=== PATIENT | male | born 1945 | race Caucasian/White ===

== ENCOUNTER 2016-11-11 09:36 | Emergency (ER) | payer OTHER ==
[2016-11-11 09:49] VITALS: BP 163/111; PULSE 83; RESP 18; TEMP 98; O2SAT 97
--- NOTE | 2016-11-11 10:02 | EDPHY ---
H & P Time Seen by Provider: 11/11/16 09:51 HPI/ROS: CHIEF COMPLAINT: frostbite right knee HISTORY OF PRESENT ILLNESS: 71-year-old male presents with frostbite on the right knee. 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 When he stood up, the right knee felt numb. He developed erythema over this area later that day. He developed a blister yesterday. He did a Google search, which informed him to seek medical care if he developed a blister. The blister only hurts if he touches it. No pain with range of motion of his right knee. ROS: No numbness, weakness, bleeding, syncopal episode, other injury. Past Medical/Surgical History: Hernia Smoking Status: Never smoked Physical Exam: Alert and oriented, pleasant Extremities: right knee-there is a 3 cm blister just inferior to the right knee. No surrounding erythema, warmth or tenderness. Skin: intact Neuro: Motor and sensory intact Vascular: Capillary refill brisk distally. Constitutional: Initial Vital Signs Temperature (C) 36.6 C 11/11/16 09:46 Heart Rate 83 11/11/16 09:46 Respiratory Rate 18 11/11/16 09:46 Blood Pressure 163/111 H 11/11/16 09:46 O2 Sat (%) 97 11/11/16 09:46 O2 Delivery Mode Room Air Allergies/Adverse Reactions: Sulfa (Sulfonamide Antibiotics) Allergy (Verified 11/11/16 09:46) Departure - Departure Disposition: Home, Routine, Self-Care Clinical Impression: Frostbite of lower extremity Qualifiers: Encounter type: initial encounter Qualified Code(s): T33.99XA - Superficial frostbite of other sites, initial encounter Condition: Good Instructions: Frostbite (ED) Additional Instructions: Leave blister intact. Once the blister opens, clean with soap and water 2 times daily, then apply antibiotic ointment. Referrals: Jacob Cobos [Primary Care Provider] - As per Instructions
== END 2016-11-11 10:06 | disposition home or self-care (01) ==
LOC: CED 09:36
DX: T33.71XA Superficial frostbite of right knee and lower leg, initial encounter (principal); W93.2XXA Prolonged exposure in deep freeze unit or refrigerator, initial encounter

== ENCOUNTER → 2017-03-29 | Outpatient (CLI) | payer OTHER ==
[~2017-03-29] MED LIST: GADOBUTROL 10 ML VIAL IVP ONE
== END ==
LOC: FIMAGING 07:43
PROVIDERS: ATTEND Physician Assistant
DX: R51 Headache (principal)
CPT/HCPCS: 70553; A9585

== ENCOUNTER → 2017-04-29 | Outpatient (CLI) | payer OTHER | LOC: FIMAGING 16:05 | PROVIDERS: ATTEND Physician Assistant | DX: M50.321 Other cervical disc degeneration at C4-C5 level (principal); M50.322 Other cervical disc degeneration at C5-C6 level; M50.323 Other cervical disc degeneration at C6-C7 level ==

== ENCOUNTER → 2017-10-22 | Outpatient (CLI) | payer OTHER | LOC: FIMAGING 07:26 | PROVIDERS: ATTEND Registered Nurse | DX: K83.1 Obstruction of bile duct (principal); N20.0 Calculus of kidney ==

== ENCOUNTER → 2017-10-24 | Outpatient (CLI) | payer OTHER ==
[~2017-10-24] MED LIST changes: -GADOBUTROL 10 ML VIAL IVP ONE; +IOPAMIDOL (ISOVUE-300) 100 ML BTL ONE
== END ==
LOC: FIMAGING 07:45
PROVIDERS: ATTEND Registered Nurse
DX: K83.8 Other specified diseases of biliary tract (principal); E80.6 Other disorders of bilirubin metabolism; R17 Unspecified jaundice
CPT/HCPCS: 74177; Q9967

== ENCOUNTER → 2017-11-13 | Outpatient (CLI) | payer OTHER | LOC: FIMAGING 10:09 | PROVIDERS: ATTEND Surgery | DX: Z45.2 Encounter for adjustment and management of vascular access device (principal); C25.2 Malignant neoplasm of tail of pancreas ==

== ENCOUNTER → 2017-11-29 | Outpatient (CLI) | payer OTHER | LOC: FIMAGING 13:43 | DX: N50.89 Other specified disorders of the male genital organs (principal); N43.3 Hydrocele, unspecified; C25.0 Malignant neoplasm of head of pancreas; Z92.21 Personal history of antineoplastic chemotherapy ==

== ENCOUNTER 2018-01-08 | Inpatient (IN) | payer OTHER | END 2018-01-12 15:01 | disposition home or self-care (01) | DRG 809 | PROVIDERS: ADMIT Internal Medicine ==

== ENCOUNTER 2018-02-05 19:48 | Inpatient (IN) | payer OTHER ==
--- NOTE | 2018-02-05 19:56 | EDPHY ---
H & P Stated Complaint: nausea and vomiting, CA patinet Time Seen by Provider: 02/05/18 19:56 - Personal History Current Tetanus/Diphtheria Vaccine: Yes Current Tetanus Diphtheria and Acellular Pertussis (TDAP): Yes - Medical/Surgical History Hx Asthma: No Hx Chronic Respiratory Disease: No Hx Diabetes: No Hx Cardiac Disease: No Hx Renal Disease: No Hx Cirrhosis: No Hx Alcoholism: No Hx HIV/AIDS: No Hx Splenectomy or Spleen Trauma: No Other PMH: hernia/back, pancreatic CA - Social History Smoking Status: Never smoked Constitutional: Initial Vital Signs Temperature (C) 37.5 C 02/05/18 19:50 Heart Rate 138 H 02/05/18 19:50 Respiratory Rate 18 02/05/18 19:50 Blood Pressure 137/86 H 02/05/18 19:50 O2 Sat (%) 93 02/05/18 19:50 O2 Delivery Mode Room Air Allergies/Adverse Reactions: Sulfa (Sulfonamide Antibiotics) Allergy (Verified 02/05/18 19:49) passed out Home Medications: Medication Instructions Recorded LORazepam [Ativan (*)] 0.5 mg SL Q4H PRN 01/08/18 Ondansetron [Zofran Odt] 8 mg PO Q8 PRN 01/08/18 Prochlorperazine Maleate 10 mg PO Q6HRS PRN 01/08/18 [Compazine 10mg (*)] Diphenoxylate HCl/Atrop Sulf 1 tab PO QID PRN #30 tab 01/12/18 [Lomotil Tab (*)] Potassium Chloride [Potassium 10 meq PO BID 02/05/18 Chloride] Medical Decision Making - Diagnostics Imaging Results: Imaging Impressions Abdomen CT 02/05/18 20:01 Impression: 1. Bibasilar subsegmental atelectasis. 2. Interim placement of a biliary stent since 10/24/2017 in this patient with a pancreatic head neoplasm with pneumobilia present, and decompression of previously-noted intrahepatic bile duct dilatation. 3. Contracted gallbladder. 4. Query mild distal small bowel enteritis. 5. Constipation/obstipation with mild rectal impaction. 6. Nonobstructive bilateral nephrolithiasis. Findings were discussed with Mervin Jimenez MD at 21:58, on 02/05/2018. Imaging: Discussed imaging studies w/ gum worker Radiologist ED Course/Re-evaluation: CHIEF COMPLAINT: Nausea and vomiting. HISTORY OF PRESENT ILLNESS: This patient is a 72 year old male with history of pancreatic cancer who presents with vomiting and nausea onset today. He endorses associated fever. He is currently undergoing chemotherapy, and his last treatment was last , six days ago. He is followed by Dr. Chung, oncologist. He was recently admitted here for four days for weakness and neutropenic fever about one month ago, 01/08/18. He was admitted two weeks prior to that at [facility] for the same. Today, he has been unable to keep down food or water. He denies chest pain, shortness of breath, headache, urinary complaints, diarrhea, or other associated symptoms. REVIEW OF SYSTEMS: A comprehensive 10 system review of systems is otherwise negative aside from elements mentioned in the history of present illness and medical decision making. PHYSICAL EXAM: HR, BP, O2 Sat, RR. Temp noted General Appearance: Alert, non-toxic appearing. Thin. Head: Atraumatic without scalp tenderness or obvious injury Eyes: Pupils equal, round, reactive to light and accommodation, EOMI, no trauma , no injection. Ears: Clear bilaterally, no perforation, normal landmarks Nose: Atraumatic, no rhinorrhea, clear. Throat: There is no erythema or exudates, no lesions, normal tonsils, mucus membranes moist. Neck: Supple, 2+ carotid upstroke, nontender, no lymphadenopathy. Respiratory: No retractions, no distress, no wheezes, and no accessory muscle use. Lungs are clear to auscultation bilaterally. Cardiovascular: PowerPort at upper right chest. Regular rate and rhythm, no murmurs, rubs, or gallops. Bilateral carotid, radial, dorsalis pedis, and posterior tibial pulses intact. Good capillary refill all extremities. Gastrointestinal: Abdomen is soft, nontender, non-distended, no masses, no rebound, no guarding, no peritoneal signs. Musculoskeletal: Normal active ROM of all extremities, atraumatic. Neurological: Alert, appropriate, and interactive. The patient has normal DTRs and non-focal cranial nerves, motor, sensory, and cerebellar exam. Skin: No rashes, good turgor, no nodules on palpation. Past medical history: Pancreatic cancer. Past surgical history: ERCP with stents x2, hernia repair, lumbar back surgery, Family history: Noncontributory Social history: Lives in [place]. Retired. Does not abuse tobacco, drugs, or alcohol. Reviewed prior medical records including admission 01/08/18 for weakness, neutropenic fever. DIFFERENTIAL DIAGNOSIS: The differential diagnosis for the patient's nausea and vomiting included but was not limited to sepsis, gastroenteritis, gastritis, appendicitis, and medication side effect. MEDICAL DECISION MAKIN72 y/o male with history of pancreatic cancer presents with ongoing nausea and vomiting, reported fever. He is afebrile here in the emergency department. Plan for labs including CBC, chemistries, liver, lipase, coag panel, lactic acid, blood cultures. Plan for CT abdomen/pelvis. Plan to administer 2L IV NS and 4mg IV Zofran for symptom relief. Plan to consult with oncology. Patient's lactic acid is 2.5. He is tachycardic at 138. However, he is afebrile and his blood pressure is within normal limits. Elevated lactic acid and heart rate are likely secondary to dehydration given the patient's history of persistent vomiting. He does not meet sepsis criteria at this time. Additionally , patient's WBC is around 9,000, he is not neutropenic. Plan to admit patient for rehydration and further evaluation. 20:36 Consulted with hospitalist service. Dr. Calvillo accepts admission for pancreatic cancer, dehydration, nausea and vomiting. 20:[address] Reagan, oncologist aoc director combat operations officer. Plan to admit patient as above, oncology will consult. 21:[address] Austin, radiologist. CT abdomen/pelvis shows pancreatic head neoplasm, possible small bowel enteritis, possible constipation/ obstipation. See impression above. We will notify hospitalist of these findings. - Data Points Laboratory Results: Laboratory Results 02/05/18 20:00 02/05/18 20:00 02/05/18 02/05/18 02/05/18 20:00 20:00 20:00 WBC 9.19 10^3/uL 10^3/uL (3.80-9.50) RBC 3.38 10^6/uL L 10^6/uL (4.40-6.38) Hgb 11.1 g/dL L g/dL (13.7-17.5) Hct 33.3 % L % (40.0-51.0) MCV 98.5 fL fL (81.5-99.8) MCH 32.8 pg pg (27.9-34.1) MCHC 33.3 g/dL g/dL (32.4-36.7) RDW 17.4 % H % (11.5-15.2) Plt Count 68 10^3/uL L 10^3/uL (150-400) MPV 10.3 fL fL (8.7-11.7) Neut % (Auto) 91.3 % H % (39.3-74.2) Lymph % (Auto) 4.8 % L % (15.0-45.0) [place] % (Auto) 2.4 % L % (4.5-13.0) Eos % (Auto) 0.0 % L % (0.6-7.6) Baso % (Auto) 0.4 % % (0.3-1.7) Nucleat RBC Rel Count 0.0 % % (0.0-0.2) Absolute Neuts (auto) 8.39 10^3/uL H 10^3/uL (1.70-6.50) Absolute Lymphs (auto) 0.44 10^3/uL L 10^3/uL (1.00-3.00) Absolute Monos (auto) 0.22 10^3/uL L 10^3/uL (0.30-0.80) Absolute Eos (auto) 0.00 10^3/uL L 10^3/uL (0.03-0.40) Absolute Basos (auto) 0.04 10^3/uL 10^3/uL (0.02-0.10) Absolute Nucleated RBC 0.00 10^3/uL 10^3/uL (0-0.01) Immature Gran % 1.1 % % (0.0-1.1) Immature Gran # 0.10 10^3/uL 10^3/uL (0.00-0.10) RBC/WBC/PLT Morphology TNP Platelet Estimate TNP PT 13.4 SEC SEC (12.0-15.0) INR 1.00 (0.83-1.16) APTT 26.3 SEC SEC (23.0-38.0) VBG Lactic Acid Sodium 130 mEq/L L mEq/L (135-145) Potassium 3.9 mEq/L mEq/L (3.3-5.0) Chloride 97 mEq/L mEq/L (97-110) Carbon Dioxide 22 mEq/l mEq/l (22-31) Anion Gap 11 mEq/L mEq/L (8-16) BUN 21 mg/dL mg/dL (7-23) Creatinine 0.6 mg/dL L mg/dL (0.7-1.3) Estimated GFR > 60 Glucose 143 mg/dL H mg/dL (70-100) Calcium 8.5 mg/dL mg/dL (8.5-10.4) Total Bilirubin 0.8 mg/dL mg/dL (0.1-1.4) Conjugated Bilirubin 0.2 mg/dL mg/dL (0.0-0.5) Unconjugated Bilirubin 0.6 mg/dL mg/dL (0.0-1.1) AST 77 IU/L H IU/L (17-59) ALT 84 IU/L H IU/L (21-72) Alkaline Phosphatase 215 IU/L H IU/L (38-126) Total Protein 5.7 g/dL L g/dL (6.3-8.2) Albumin 3.1 g/dL L g/dL (3.5-5.0) Lipase 164 IU/L IU/L (23-300) 02/05/18 20:00 WBC RBC Hgb Hct MCV MCH MCHC RDW Plt Count MPV Neut % (Auto) Lymph % (Auto) [place] % (Auto) Eos % (Auto) Baso % (Auto) Nucleat RBC Rel Count Absolute Neuts (auto) Absolute Lymphs (auto) Absolute Monos (auto) Absolute Eos (auto) Absolute Basos (auto) Absolute Nucleated RBC Immature Gran % Immature Gran # RBC/WBC/PLT Morphology Platelet Estimate PT INR APTT VBG Lactic Acid 2.5 mmol/L H mmol/L (0.7-2.1) Sodium Potassium Chloride Carbon Dioxide Anion Gap BUN Creatinine Estimated GFR Glucose Calcium Total Bilirubin Conjugated Bilirubin Unconjugated Bilirubin AST ALT Alkaline Phosphatase Total Protein Albumin Lipase Medications Given: Discontinued Medications Sodium Chloride (Ns) 1,000 mls @ 0 mls/hr IV EDNOW ONE; Wide Open PRN Reason: Protocol Stop: 02/05/18 20:01 Last Admin: 02/05/18 20:08 Dose: 1,000 mls Sodium Chloride (Ns) 1,000 mls @ 0 mls/hr IV EDNOW ONE; Wide Open PRN Reason: Protocol Stop: 02/05/18 20:01 Last Admin: 02/05/18 21:51 Dose: 1,000 mls Ondansetron HCl (Zofran) 4 mg IVP EDNOW ONE Stop: 02/05/18 20:01 Last Admin: 02/05/18 20:08 Dose: 4 mg Departure - Departure Disposition: [facility] In[facility] Acute Clinical Impression: Dehydration Nausea and vomiting Qualifiers: Vomiting type: unspecified Vomiting Intractability: non-intractable Qualified Code(s): R11.2 - Nausea with vomiting, unspecified Pancreatic cancer Qualifiers: Pancreatic malignancy location: other parts of pancreas Qualified Code(s): C25.7 - Malignant neoplasm of other parts of pancreas Condition: Fair Report Scribed for: Mervin Jimenez Report Scribed by: Minoo Christianson Date of Report: 02/05/18 Time of Report: 21:17
[2018-02-05] MEDS ORDERED: ONDANSETRON 4 MG/2 ML VIAL IVP ONE (20:00)
[2018-02-05] MEDS ORDERED: NS 1,000 ML IV ONE ×2 (20:00)
[2018-02-05 20:16] LABS: PLATELET COUNT 68 10^3/uL (150-400)
[2018-02-05] MEDS ORDERED: IOPAMIDOL (ISOVUE-300) 100 ML BTL ONE (20:22)
[2018-02-05 20:24] LABS: PROTIME(PATIENT) 13.4 SEC (12.0-15.0)
[2018-02-05] MEDS ORDERED: ACETAMINOPHEN 325 MG TAB PO PRN (22:12)
--- NOTE | 2018-02-05 23:15 | PDGENHP ---
History and Physical - Chief Complaint Fever - History of Present Illness 72 yo M w/ pancreatic CA presents with fever. Patient was in usual state of health until this afternoon when he felt warm. He took his temperature and noted it to be as high as 103. He called his outpatient provider and was directed to the ED. He has felt somewhat nauseous and tells me his stomach " does not feel right". Despite this he states this is quite mild and denies naun abdominal pain. He also denies diarrhea or constipation. Infectious ROS is negative including sore throat, cough, congestion, SOB, and dysuria. He denies any pain around his port site. CT in the ED revealed possible small bowel enteritis and his LFTs are mildly abnormal, but the remainder of his work-up has been otherwise unremarkable. At the time of my evaluation the patient is resting comfortably with no specific complaints. Case discussed with Dr. Calvillo; records reviewed in EMR. History Information - Allergies/Home Medication List Allergies/Adverse Reactions: Sulfa (Sulfonamide Antibiotics) Allergy (Verified 02/05/18 19:49) passed out Home Medications: LORazepam [Ativan (*)] 0.5 mg SL Q4H PRN 01/08/18 [Last Taken Unknown] Ondansetron [Zofran Odt] 8 mg PO Q8 PRN 01/08/18 [Last Taken Unknown] Prochlorperazine Maleate [Compazine 10mg (*)] 10 mg PO Q6HRS PRN 01/08/18 [Last Taken Unknown] Potassium Chloride [Potassium Chloride] 10 meq PO BID 02/05/18 [Last Taken 02/05] I have personally reviewed and updated: family history, medical history - Past Medical History cancer (Pancreatic) - Surgical History Reports: hernia repair - Family History Additional family history: Asked, denies - Social History Smoking Status: Never smoked Review of Systems Review of Systems: ROS: 10pt was reviewed & negative except for what was stated in HPI & below Physical Exam Physical Exam: Temp Pulse Resp BP Pulse Ox 37.4 C 112 H 16 110/77 94 02/05/18 22:17 02/05/18 22:17 02/05/18 22:17 02/05/18 22:17 02/05/18 22:17 Constitutional: no apparent distress, not in pain Eyes: PERRL, EOMI Ears, Nose, Mouth, Throat: moist mucous membranes, no oral mucosal ulcers Cardiovascular: regular rate and rhythym, no murmur, rub, or gallop Respiratory: no respiratory distress, clear to auscultation Gastrointestinal: normoactive bowel sounds, soft, non-tender abdomen Skin: warm, normal color Musculoskeletal: full muscle strength, no muscle tenderness Neurologic: AAOx3, CN II-XII Intact Psychiatric: interacting appropriately, not anxious Lab Data & Imaging Review 02/05/18 20:00 02/05/18 20:00 WBC 9.19 10^3/uL (3.80-9.50) 02/05/18 20:00 RBC 3.38 10^6/uL (4.40-6.38) L 02/05/18 20:00 Hgb 11.1 g/dL (13.7-17.5) L 02/05/18 20:00 Hct 33.3 % (40.0-51.0) L 02/05/18 20:00 MCV 98.5 fL (81.5-99.8) 02/05/18 20:00 MCH 32.8 pg (27.9-34.1) 02/05/18 20:00 MCHC 33.3 g/dL (32.4-36.7) 02/05/18 20:00 RDW 17.4 % (11.5-15.2) H 02/05/18 20:00 Plt Count 68 10^3/uL (150-400) L 02/05/18 20:00 MPV 10.3 fL (8.7-11.7) 02/05/18 20:00 Neut % (Auto) 91.3 % (39.3-74.2) H 02/05/18 20:00 Lymph % (Auto) 4.8 % (15.0-45.0) L 02/05/18 20:00 [place] % (Auto) 2.4 % (4.5-13.0) L 02/05/18 20:00 Eos % (Auto) 0.0 % (0.6-7.6) L 02/05/18 20:00 Baso % (Auto) 0.4 % (0.3-1.7) 02/05/18 20:00 Nucleat RBC Rel Count 0.0 % (0.0-0.2) 02/05/18 20:00 Absolute Neuts (auto) 8.39 10^3/uL (1.70-6.50) H 02/05/18 20:00 Absolute Lymphs (auto) 0.44 10^3/uL (1.00-3.00) L 02/05/18 20:00 Absolute Monos (auto) 0.22 10^3/uL (0.30-0.80) L 02/05/18 20:00 Absolute Eos (auto) 0.00 10^3/uL (0.03-0.40) L 02/05/18 20:00 Absolute Basos (auto) 0.04 10^3/uL (0.02-0.10) 02/05/18 20:00 Absolute Nucleated RBC 0.00 10^3/uL (0-0.01) 02/05/18 20:00 Immature Gran % 1.1 % (0.0-1.1) 02/05/18 20:00 Immature Gran # 0.10 10^3/uL (0.00-0.10) 02/05/18 20:00 RBC/WBC/PLT Morphology TNP 02/05/18 20:00 Platelet Estimate TNP 02/05/18 20:00 PT 13.4 SEC (12.0-15.0) 02/05/18 20:00 INR 1.00 (0.83-1.16) 02/05/18 20:00 APTT 26.3 SEC (23.0-38.0) 02/05/18 20:00 VBG Lactic Acid 2.5 mmol/L (0.7-2.1) H 02/05/18 20:00 Sodium 130 mEq/L (135-145) L 02/05/18 20:00 Potassium 3.9 mEq/L (3.3-5.0) 02/05/18 20:00 Chloride 97 mEq/L (97-110) 02/05/18 20:00 Carbon Dioxide 22 mEq/l (22-31) 02/05/18 20:00 Anion Gap 11 mEq/L (8-16) 02/05/18 20:00 BUN 21 mg/dL (7-23) 02/05/18 20:00 Creatinine 0.6 mg/dL (0.7-1.3) L 02/05/18 20:00 Estimated GFR > 60 02/05/18 20:00 Glucose 143 mg/dL (70-100) H 02/05/18 20:00 Calcium 8.5 mg/dL (8.5-10.4) 02/05/18 20:00 Total Bilirubin 0.8 mg/dL (0.1-1.4) 02/05/18 20:00 Conjugated Bilirubin 0.2 mg/dL (0.0-0.5) 02/05/18 20:00 Unconjugated Bilirubin 0.6 mg/dL (0.0-1.1) 02/05/18 20:00 AST 77 IU/L (17-59) H 02/05/18 20:00 ALT 84 IU/L (21-72) H 02/05/18 20:00 Alkaline Phosphatase 215 IU/L (38-126) H 02/05/18 20:00 Total Protein 5.7 g/dL (6.3-8.2) L 02/05/18 20:00 Albumin 3.1 g/dL (3.5-5.0) L 02/05/18 20:00 Lipase 164 IU/L (23-300) 02/05/18 20:00 Urine Color YELLOW 02/05/18 21:50 Urine Appearance CLEAR 02/05/18 21:50 Urine pH 6.0 (5.0-7.5) 02/05/18 21:50 Ur Specific [place] 1.034 (1.002-1.030) H 02/05/18 21:50 Urine Protein NEGATIVE (NEGATIVE) 02/05/18 21:50 Urine Ketones NEGATIVE (NEGATIVE) 02/05/18 21:50 Urine Blood NEGATIVE (NEGATIVE) 02/05/18 21:50 Urine Nitrate NEGATIVE (NEGATIVE) 02/05/18 21:50 Urine Bilirubin NEGATIVE (NEGATIVE) 02/05/18 21:50 Urine Urobilinogen NEGATIVE EU (0.2-1.0) 02/05/18 21:50 Ur Leukocyte Esterase NEGATIVE (NEGATIVE) 02/05/18 21:50 Urine Glucose NEGATIVE (NEGATIVE) 02/05/18 21:50 Imaging Review: Imaging Impressions Abdomen CT 02/05/18 20:01 Impression: 1. Bibasilar subsegmental atelectasis. 2. Interim placement of a biliary stent since 10/24/2017 in this patient with a pancreatic head neoplasm with pneumobilia present, and decompression of previously-noted intrahepatic bile duct dilatation. 3. Contracted gallbladder. 4. Query mild distal small bowel enteritis. 5. Constipation/obstipation with mild rectal impaction. 6. Nonobstructive bilateral nephrolithiasis. Findings were discussed with Mervin Jimenez MD at 21:58, on 02/05/2018. Chest X-Ray 02/05/18 22:15 Impression: There is no focal infiltrate. Assessment & Plan Assessment: 72 yo M w/ pancreatic CA presents with fever of unclear etiology. Plan: 1. Fever - Unclear etiology noting overall lack of symptoms; nausea and mildly abnormal LFTs do point towards possible GI source. CT A/P notable for possible small bowel enteritis. Despite this, patient denies diarrhea or constipation. He is not neutropenic. CXR and UA not consistent with infection. He does have a chest port, but this does not appear infected at least superficially. - Observe off of antibiotics for now noting overall stability and normal blood counts - Blood cultures, procalcitonin, respiratory PCR ordered - GI PCR if diarrhea develops 2. Abnormal LFTs - Mildly elevated AST/ALT and Alk Phos; pattern is suggestive of mild inflammation. It is possible the process responsible for #1 is related. Normal bilirubin and decompressed biliary system on CT argue against biliary obstruction. - Monitor CMP 3. Pancreatic CA - Currently on chemotherapy; last infusion on 01/30. 4. Thrombocytopenia - Likely as a result of chemotherapy. - Monitor CBC, avoid anticoagulants 5. Anemia - Fairly stable from previous values, no signs of acute bleeding. Diet - Regular Code - Full Ppx - SCDs noting low platelets Dispo - Admit under observation status
[2018-02-06] MEDS: NS 1,000 ML IV SCH ×2 (01:38→12:06)
[2018-02-06] MEDS: ONDANSETRON 4 MG/2 ML VIAL IVP PRN (01:38)
[2018-02-06 05:44] LABS: PLATELET COUNT 43 10^3/uL (150-400)
[2018-02-06] MEDS ORDERED: LORazepam 0.5 MG TAB SL PRN (08:20)
[2018-02-06] MEDS ORDERED: ENOXAPARIN 40 MG/0.4 ML SYR SC SCH (09:00)
[2018-02-06] MEDS ORDERED: IBUPROFEN 600 MG TAB PO PRN (09:36)
--- NOTE | 2018-02-06 09:37 | HOSPPROG ---
Hospitalist Progress Note Assessment/Plan: #SIRs: tachycardia, fever: suspect chemo-related. Negative eval thus far. Diarrhea this afternoon, check PCR. Some enteritis on CT. Not neutropenic -has port, blood cultures pending -hold off on abx. IVFs #Localized pancreatic cancer: having hard time with chemo; been hospitalized 3x in past month -discussed palliative with he and daughter. He wants to d/w [facility] #Diarrhea: PCR pending #Mild lactic acidosis: starvation ketoses, dehydration. IVFs, repeat lab #Thrush: nystatin #Diet: regular #Disp: inpatient admission for fever/tachy, requiring IVFs, GI panel Additional time spent: 30 min [id number] bedside with patient/daughter discussing goals, advanced directives, PC Subjective: diarrhea this afternoon Objective: Vital Signs Temp Pulse Resp BP Pulse Ox 38.4 C H 102 H 14 98/68 L 93 02/06/18 07:48 02/06/18 07:48 02/06/18 07:48 02/06/18 07:48 02/06/18 07:48 Microbiology 02/06/18 01:55 Respiratory Panel (PCR) - Final Nasal, Sinus - Anaerobic Tube/Swab No Organism Detected Laboratory Results 02/06/18 04:50 02/06/18 04:50 02/05/18 02/06/18 02/07/18 05:59 05:59 05:59 Intake Total 2322 Output Total 200 Balance 2122 PT 13.4 SEC (12.0-15.0) 02/05/18 20:00 INR 1.00 (0.83-1.16) 02/05/18 20:00 - Time Spent With Patient Time Spent with Patient: greater than 25 minutes Time Spent with Patient: Greater than 25 minutes spent on this patients care, greater than 50% of time spent counseling, educating, and coordinating care regarding the above mentioned plan. - Physical Exam Constitutional: cachectic Eyes: PERRL Ears, Nose, Mouth, Throat: moist mucous membranes Cardiovascular: regular rate and rhythym Respiratory: no respiratory distress Gastrointestinal: normoactive bowel sounds, soft, non-tender abdomen Genitourinary: no bladder fullness Skin: warm Musculoskeletal: full muscle strength Neurologic: AAOx3, CN II-XII Intact Psychiatric: interacting appropriately ICD10 Worksheet Patient Problems: Problems Problem Status Onset Dehydration Acute Nausea and vomiting Acute Pancreatic cancer Acute Neutropenic fever Acute
[2018-02-06] MEDS: NYSTATIN SUSP 500000 UNIT/5 ML UDCUP PO SCH ×3 (13:13→20:52)
--- NOTE | 2018-02-06 16:17 | ASMTCMCOM ---
CM Note CM Note Notes: Pt has been admtited with fever, n/v, dehydration and he also has thrush. He has a hx of pancreatic CA. Per oncologist, sx are most likely related to recent chemo. Pt is current with [facility] RN. CM will follow for d/c needs. Date Signed: 02/06/2018 04:16 PM Electronically Signed By:OSFÍA Ambrose
[2018-02-06] MEDS ORDERED: NS 500 ML IV ONE (18:27)
--- NOTE | 2018-02-06 18:59 | PDMN ---
Medical Necessity Medical necessity: Change to inpt as of 02/06/18 @ 1826. Pt meets inpt criteria per Systemic or Infectious Condition GRG. 72 y/o w/pancreatic cancer (currently on chemo, last inf 01/30) admitted w/fever, nausea, tachycardic HR 130's, and abnormal LFT's, thrombocytopenia. Abd CT shows enteritis, diarrhea today, mild lactic acidosis, starvation ketoses, dehydration, persistent fever and tachycardia today, blood cultures pending. IVF, IV Zofran for N/V, GI panel pending. Anticipate>2MN for ongoing med nec eval/treatment.
[2018-02-06] MEDS: ACETAMINOPHEN 325 MG TAB PO PRN (19:12)
--- NOTE | 2018-02-06 19:49 | PDCONSULT ---
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 Patient has completed 6 cycles of FOLFIRINOX with cycle #6 day #1 on 01/30. He received neulasta 02/02. He reports he was checking his temperature every few hours yesterday and noticed he felt warm. He checked his temp and it was up to 103 F. He called personal companion physician who recommended he go to the ER. On the way to the ER he had nausea and vomiting, his first episodes of either since starting chemotherapy. Other than feeling warm he has no other symptoms and had similar reactions around this same time with other cycles of chemotherapy. He denies cough, shortness of breath, dysuria, skin rash or diarrhea. He does report diarrhea maybe 2-3 weeks ago which has since resolved. In ER he had normal ANC, blood cultures were sent. ROS -A complete 12 point ROS was negative unless indicated in the HPI PMH -Pancreatic cancer as above PSH -No significant past surgical history SH -Smoked very little in the past, no drugs or alcohol FH -No pertinent family history. Physical examination Vital signs reviewed General: no acute distress appearing male, non toxic appearing HEENT: PERRL, no icterus or pallor, whitish plaques on hard and soft palate CV: Regular rate and rhythm without rubs thrills or gallops Chest: CTA and percussion in bilateral posterior lungs Abdomen: soft, non tender, non distended, no HSM appreciated Extremities: warm and well perfused without edema Skin: no skin rash or ecchymosis Pertinent labs reviewed Assessment and plan Patient is a 72 year old male with history of locally advance pancreatic cancer admitted for fever, nausea and vomiting. #Fever Patient is not neutropenic and has had admissions with similar episodes during chemotherapy. He has no other symptoms, blood cultures drawn are pending. Likely drug related. -Follow-up blood cultures, no need for antibiotics at this time. He is 7 days out from chemotherapy with neulasta and unlikely he will become severely neutropenic. #Nausea and vomiting Resolved, likely related to fever/chemotherapy #Pancreatic cancer Follow-up with Dr. Chung, due for 2 more cycles. Bull Reagan
[2018-02-07] MEDS: ACETAMINOPHEN 325 MG TAB PO PRN ×2 (04:23→16:17)
[2018-02-07] MEDS: NYSTATIN SUSP 500000 UNIT/5 ML UDCUP PO SCH ×4 (05:11→20:13)
--- NOTE | 2018-02-07 07:14 | HOSPPROG ---
Hospitalist Progress Note Assessment/Plan: XC: Blood cultures positive for gram negative rods, will start ceftriaxone. Objective: Vital Signs Temp Pulse Resp BP Pulse Ox 37.2 C 118 H 18 101/65 92 02/07/18 06:46 02/07/18 04:00 02/07/18 04:00 02/07/18 04:00 02/07/18 04:00 Laboratory Results 02/07/18 04:25 02/06/18 02/07/18 02/08/18 05:59 05:59 05:59 Intake Total 100 Output Total 550 Balance -450 PT 13.4 SEC (12.0-15.0) 02/05/18 20:00 INR 1.00 (0.83-1.16) 02/05/18 20:00 ICD10 Worksheet Patient Problems: Problems Problem Status Onset Dehydration Acute Nausea and vomiting Acute Pancreatic cancer Acute Neutropenic fever Acute
--- NOTE | 2018-02-07 09:40 | HOSPPROG ---
Hospitalist Progress Note Assessment/Plan: # Serratia bacteremia * Unclear source * Wondering if this may be related to biliary stent * On ceftriaxone * ID will see #Localized pancreatic cancer: having hard time with chemo * He will discuss future chemotherapy plans with Dr. Chung #Diarrhea: PCR pending #Mild lactic acidosis: starvation ketoses, dehydration. * Normalized # anemia/thrombocytopenia * Continue to monitor #Thrush: nystatin #Diet: regular #Disp: inpatient admission for bacteremia Subjective: Feels okay. Poor appetite Objective: Vital Signs Temp Pulse Resp BP Pulse Ox 36.9 C 98 18 101/66 96 02/07/18 08:32 02/07/18 08:32 02/07/18 08:32 02/07/18 08:32 02/07/18 08:32 Laboratory Results 02/07/18 04:25 02/06/18 02/07/18 02/08/18 05:59 05:59 05:59 Intake Total 100 Output Total 550 200 Balance -450 -200 PT 13.4 SEC (12.0-15.0) 02/05/18 20:00 INR 1.00 (0.83-1.16) 02/05/18 20:00 - Physical Exam Constitutional: no apparent distress, not in pain, cachectic Eyes: No icteric sclera Cardiovascular: regular rate and rhythym, no murmur, rub, or gallop Respiratory: no respiratory distress, no rales or rhonchi Gastrointestinal: normoactive bowel sounds, soft, non-tender abdomen, no palpable masses Skin: warm Neurologic: AAOx3 Psychiatric: interacting appropriately, not anxious, not encephalopathic, thought process linear ICD10 Worksheet Patient Problems: Problems Problem Status Onset Dehydration Acute Nausea and vomiting Acute Pancreatic cancer Acute Neutropenic fever Acute
[2018-02-07] MEDS: ONDANSETRON DISINTEGRATING 4 MG TAB PO PRN ×2 (10:10→18:04)
[2018-02-07] MEDS: ONDANSETRON 4 MG/2 ML VIAL IVP PRN (14:02)
--- NOTE | 2018-02-07 14:03 | ASMTCMCOM ---
CM Note CM Note Notes: CM spoke with Pt during rounds and reviewed Pt's chart for d/c planning. Pt had been receiving RN through [facility]. They shared that their understanding was she was going to check vitals; this is something they do independently and want to know if RN home visits continues to be a recommendation. CM to follow. D/C Plan: Home, possibly with [facility] RN. Date Signed: 02/07/2018 02:02 PM Electronically Signed By:Devi Rousseau
[2018-02-07] MEDS: NS 1,000 ML IV SCH (14:04)
[2018-02-07] MEDS: ERTAPENEM 1 GM in NS 100 ML IV SCH (14:38)
--- NOTE | 2018-02-07 16:19 | GCON ---
INFECTIOUS DISEASES CONSULTATION DATE OF CONSULTATION: 02/07/2018 REFERRING PHYSICIAN: Mago Ferrer MD REASON FOR CONSULTATION: Gram-negative keyanna bacteremia. HISTORY OF PRESENT ILLNESS: Patient is a 72-year-old male with a past medical history of pancreatic cancer, status post biliary stenting in October, whom I am asked to see in consultation for gram-negativ e keyanna bacteremia. The patient was admitted on 02/05/2018 with chief complaint of fever to 103, with associated chills. He had associated nausea with vomiting. He did not have significant abdominal pa in. The patient has an indwelling port in the right upper chest, which has been without erythema, te nderness or drainage. He called his oncologist based on his temperature and was advised to be seen i n the emergency department. The patient has not noted any associated diarrhea, although he notes sof t stool. No sore throat, cough, shortness of breath, chest pain, abdominal pain, urinary tract sympt oms, skin rash, myalgias, or arthralgias. Blood cultures were obtained at the time of presentation, and the patient was started empirically on ceftriaxone. He was not neutropenic. Blood cultures obta ined at the time of presentation are now showing 1 of 2 sets with Serratia marcescens. The patient d id have a temperature earlier today as high as 38.8. Given the above findings, I am now asked to ass ist in his ongoing management. PAST MEDICAL HISTORY: Pancreatic cancer, status post biliary stenting, chemotherapy with FOLFIRINOX, status post cycle #6 on 01/30/2018, with receipt of Neulasta on 02/02/2018. PAST SURGICAL HISTORY: Back surgery. CURRENT MEDICATIONS: Ceftriaxone 2 g IV daily, Motrin 600 mg every 6 hours as needed, Ativan as need ed, nystatin 500,000 units p.o. 4 times per day. ALLERGIES: Sulfonamides, associated with rash. SOCIAL HISTORY: Patient quit smoking many years ago. No significant alcohol use. No drug use. Pet cat at home, without bites or scratches. No recent travel. FAMILY HISTORY: Noncontributory. REVIEW OF SYSTEMS: Outside that noted in the HPI, the remainder of 10-system review is unremarkable. PHYSICAL EXAMINATION: VITAL SIGNS: Temperature maximum 38.8, temperature current 36.9, heart rate 9 8, respiratory rate 18, blood pressure 121/75, oxygen saturation 98% on room air. GENERAL: Patient is a thin male in no acute distress. Appears nontoxic. HEENT: There is no scleral icterus, conjunc tival injection, or conjunctival petechiae. Oropharynx shows dry mucous membranes. Dentition in ke r repair. There is no nasal discharge. There is no tenderness over the frontal, maxillary, or masto id area. NECK: Supple, without palpable lymphadenopathy or thyromegaly. CHEST: Clear to auscultat ion bilaterally, without adventitious sounds. Respiratory effort is normal. A port is present in th e right upper chest, without tenderness or erythema. CARDIOVASCULAR: Regular rate and rhythm, witho ut murmurs, gallops, or rubs. ABDOMEN: Soft, nontender, nondistended. There is no palpable organom egaly. Bowel sounds are present but hypoactive. MUSCULOSKELETAL: No cyanosis, clubbing, or edema. SKIN: No rashes present. No stigmata of endocarditis. The skin is warm and dry to touch. NEUROLO GIC: The patient is alert and interacts appropriately with examiner. Cranial nerves 2-12 are grossl y intact. Sensation is grossly intact. Muscle tone and bulk are normal. LYMPHATICS: No cervical, supraclavicular, or inguinal nodes palpable. LABORATORY DATA: White blood cell count 4.9, hematocrit 29.0, platelets 43, neutrophils 89%. Serum creatinine is 0.5, bicarbonate 23, AST 54, ALT 73, bilirubin 1.0, alkaline phosphatase 159, albumin 2 .6, venous lactate 1.7. INR 1.0. Urinalysis negative. Blood cultures with 1 of 2 sets showing Serr atia marcescens. GI pathogen panel by PCR testing is negative. CT scan of the abdomen and pelvis is reviewed and interpreted by me, showing findings of biliary stent with pneumobilia being present; mi ld mucosal enhancement in the distal ileum. IMPRESSION: 1. Serratia marcescens bacteremia: Most likely, this is a biliary etiology based on patient's pancr eatic cancer and biliary stenting. Suspect the small-bowel findings on CT scan are less likely to be etiologic for this presentation. Given the potential for Serratia to produce AmpC mediated beta lac tamase, which can be problematic for third generation cephalosporins, will change ceftriaxone to erta penem, which will be stable against AmpC induction. Will repeat blood cultures to document clearing of bacteremia. Given that bacteremia currently is low-grade and suspect other etiology for bacteremi a than his port, will retain port unless repeat cultures are positive, at which point in time, this w ould necessitate removal. RECOMMENDATIONS: 1. Ertapenem 1 g IV q.24 hours. 2. Discontinue ceftriaxone. 3. Repeat blood cultures x2. 4. Follow clinical response to above measures. 5. Await susceptibility profile on Serratia isolate. 6. Thank you for this consultation. We will continue to follow the patient with you. /[id number]/MODL
--- NOTE | 2018-02-07 20:10 | SOAPPROG ---
SOAP Progress Note Assessment/Plan: Assessment/plan: Patient is a 72 year old male with history of locally advance pancreatic cancer admitted for fever, nausea and vomiting and found to have bacteremia. #Serratia bacteremia. Likely biliary source, no signs of obstruction/occlusion of stent. LFTs are at or near baseline. CT on admission unremarkable. Patient is not neutropenic currently. -continue antibiotics, as SPACE organism may want to discuss with ID #Nausea and vomiting Resolved, likely related to fever/chemotherapy #Pancreatic cancer No signs of progression on CT scan this admission. CA 19-9 trending down apparently. Follow-up with Dr. Chung, due for 2 more cycles - may decide to proceed with those or go right to PET/surgery given this complication. He has an appt next week for chemotherapy and asked him to keep appt, may not receive chemotherapy as will still be on antibiotics. Bull Reagan 02/07/18 20:07 Subjective: Patient reports feeling fine. He had some off and on fevers yesterday but has no other symptoms. No diarrhea abdominal pain chest pains or shortness of breath. Objective: Vital Signs Temp Pulse Resp BP Pulse Ox 37.3 C 99 14 109/69 94 02/07/18 19:19 02/07/18 19:19 02/07/18 19:19 02/07/18 19:19 02/07/18 19:19 Microbiology 02/07/18 08:40 Gastrointestinal Tract Panel (PCR) - Final Stool No Organism Detected Laboratory Results 02/07/18 04:25 02/06/18 02/07/18 02/08/18 05:59 05:59 05:59 Intake Total 100 3120 Output Total 550 200 Balance -450 2920 PT 13.4 SEC (12.0-15.0) 02/05/18 20:00 INR 1.00 (0.83-1.16) 02/05/18 20:00 Physical examination Vital signs reviewed General: no acute distress appearing male, non toxic appearing HEENT: PERRL, no icterus or pallor, whitish plaques on hard and soft palate CV: Regular rate and rhythm without rubs thrills or gallops Chest: CTA and percussion in bilateral posterior lungs Abdomen: soft, non tender, non distended, no HSM appreciated Extremities: warm and well perfused without edema Skin: no skin rash or ecchymosis ICD10 Worksheet Patient Problems: Problems Problem Status Onset Dehydration Acute Nausea and vomiting Acute Pancreatic cancer Acute Neutropenic fever Acute
[2018-02-08] MEDS: ACETAMINOPHEN 325 MG TAB PO PRN (00:58)
[2018-02-08] MEDS: NYSTATIN SUSP 500000 UNIT/5 ML UDCUP PO SCH ×4 (06:16→20:28)
[2018-02-08] MEDS: ONDANSETRON DISINTEGRATING 4 MG TAB PO PRN (09:31)
[2018-02-08] MEDS: ERTAPENEM 1 GM in NS 100 ML IV SCH (09:31)
[2018-02-08] MEDS ORDERED: PROTOCOL POTASSIUM 1 DOSE MISC PRN (10:05)
[2018-02-08] MEDS: POTASSIUM CL 20 MEQ TAB PO SCH (10:27)
[2018-02-08] MEDS: LOPERAMIDE HCL 2 MG CAP PO PRN ×4 (10:27→22:03)
--- NOTE | 2018-02-08 10:32 | HOSPPROG ---
Hospitalist Progress Note Assessment/Plan: # Serratia bacteremia -query biliary / GI translocation source, note biliary stent * Cont Ertapenem, ID following * Discussed likely 2 week course of atbx and may be able to have home infusion. This was rather distressing to - they'll need increased support, CM involved #Localized pancreatic cancer: having hard time with chemo * He will discuss future chemotherapy plans with Dr. Chung #Diarrhea: PCR neg for c diff PRN Imodium #Hypokalemia: mild, K 4.1 --> 3.4 with diarrhea. He takes K supplement at home Add K supplement with protocol #Mild lactic acidosis: starvation ketoses, dehydration. * Normalized # anemia/thrombocytopenia * Continue to monitor #Thrush: nystatin #Diet: regular #Disp: cont inpatient admission for bacteremia, will likely need HHC at minimum , CM to assist with possible home infusion needs when the time comes. PT/OT today to evaluate functional capacity. Subjective: Pt feels ok, poor oral intake. No abdominal pain or vomiting, but some nausea. No fevers/chills or rigors. Objective: Vital Signs Temp Pulse Resp BP Pulse Ox 36.8 C 88 16 121/74 H 94 02/08/18 08:43 02/08/18 08:43 02/08/18 08:43 02/08/18 08:43 02/08/18 08:43 Microbiology 02/07/18 08:40 Gastrointestinal Tract Panel (PCR) - Final Stool No Organism Detected Laboratory Results 02/07/18 04:25 02/07/18 02/08/18 02/09/18 05:59 05:59 05:59 Intake Total 100 3370 Output Total 550 200 Balance -450 3170 PT 13.4 SEC (12.0-15.0) 02/05/18 20:00 INR 1.00 (0.83-1.16) 02/05/18 20:00 - Physical Exam Constitutional: no apparent distress Eyes: PERRL Ears, Nose, Mouth, Throat: moist mucous membranes Cardiovascular: regular rate and rhythym Respiratory: no respiratory distress, clear to auscultation Gastrointestinal: normoactive bowel sounds, soft, non-tender abdomen Skin: warm Musculoskeletal: full muscle strength Neurologic: AAOx3 Psychiatric: interacting appropriately ICD10 Worksheet Patient Problems: Problems Problem Status Onset Dehydration Acute Nausea and vomiting Acute Pancreatic cancer Acute Neutropenic fever Acute
[2018-02-08] MEDS: ONDANSETRON 4 MG/2 ML VIAL IVP PRN ×2 (11:49→16:52)
--- NOTE | 2018-02-08 12:39 | PCMIDPN ---
Assessment/Plan: Assessment: Serratia bacteremia secondary to likely biliary primary infection due to underlying pancreatic cancer and biliary tract stenting. Serratia is not identified outside of PCR probe. Awaiting formal identification and sensitivity. Meanwhile will continue the IV ertapenem daily. Plan would be for 2 weeks of treatment from negative cultures. Repeat blood cultures on are no growth to date. Plan: 1. Continue empiric IV ertapenem. 2. Follow up on formal culture identification and sensitivity panel. 3. Arrange for home IV antibiotic when clinically ready. 02/08/18 12:36 02/08/18 12:36 Subjective: Patient is resting in his hospital bed. He still feels weak. Denies any fevers or chills and this is an improvement over the last 24 hr. Has no symptoms around his port site in his right chest. Denies any abdominal pain or discomfort. Objective: Ertapenem # 2 Vital Signs Temp Pulse Resp BP Pulse Ox 36.8 C 92 16 120/78 95 02/08/18 08:43 02/08/18 10:35 02/08/18 08:43 02/08/18 10:35 02/08/18 10:35 Microbiology 02/07/18 08:40 Gastrointestinal Tract Panel (PCR) - Final Stool No Organism Detected Laboratory Results 02/07/18 04:25 02/07/18 02/08/18 02/09/18 05:59 05:59 05:59 Intake Total 100 3370 Output Total 550 200 Balance -450 3170 - Physical Exam General Appearance: WD/WN, alert, no apparent distress, non-toxic Respiratory: lungs clear, normal breath sounds, No respiratory distress Cardiac/Chest: regular rate, rhythm, No tachycardia Abdomen: non-tender, soft Skin: normal color, warm/dry, No rash Neuro/Psych: alert, normal mood/affect, oriented x 3 ICD10 Worksheet Patient Problems: Problems Problem Status Onset Dehydration Acute Nausea and vomiting Acute Pancreatic cancer Acute Neutropenic fever Acute
--- NOTE | 2018-02-08 13:57 | SOAPPROG ---
SOAP Progress Note Assessment/Plan: Assessment: Patient is a 72 year old male with history of locally advance pancreatic cancer admitted for fever, nausea and vomiting and found to have bacteremia. #Serratia bacteremia. Likely biliary source, no signs of obstruction/occlusion of stent. LFTs are at or near baseline. CT on admission unremarkable. Need to check CBC. No fever today. -continue antibiotics per ID #Nausea and vomiting Mild nausea but no vomiting #Pancreatic cancer No signs of progression on CT scan this admission. CA 19-9 trending down apparently. Follow-up with Dr. Chung, due for 2 more cycles - may decide to proceed with those or go right to PET/surgery given this complication. He has an appt next week for chemotherapy and asked him to keep appt, may not receive chemotherapy as will still be on antibiotics. Plan: - Abx per ID - Check CBC CMP tomorrow - Probably will hold chemo while clearing sepsis 02/08/18 13:54 Subjective: c/o mild nausea and occasional diarrhea. Objective: Vital Signs Temp Pulse Resp BP Pulse Ox 37.1 C 92 16 120/78 95 02/08/18 12:57 02/08/18 10:35 02/08/18 08:43 02/08/18 10:35 02/08/18 10:35 Microbiology 02/07/18 08:40 Gastrointestinal Tract Panel (PCR) - Final Stool No Organism Detected Laboratory Results 02/07/18 04:25 02/06/18 02/07/18 02/08/18 23:59 23:59 23:59 Intake Total 3220 250 Output Total 200 550 Balance -200 2670 250 PT 13.4 SEC (12.0-15.0) 02/05/18 20:00 INR 1.00 (0.83-1.16) 02/05/18 20:00 Physical Exam - Physical Exam General Appearance: alert, other (appears to be fatigued) Respiratory: lungs clear Cardiac/Chest: regular rate, rhythm Abdomen: normal bowel sounds Skin: pallor ICD10 Worksheet Patient Problems: Problems Problem Status Onset Neutropenic fever Acute Dehydration Acute Nausea and vomiting Acute Pancreatic cancer Acute
[2018-02-08] MEDS: NS 1,000 ML IV SCH (15:19)
[2018-02-08] MEDS ORDERED: POTASSIUM CL 10 MEQ TAB PO ONE (19:55)
[2018-02-08] MEDS ORDERED: MAGNESIUM SULF 1 GM/DEXTROSE 100 ML IV ONE (20:08)
[2018-02-08] MEDS ORDERED: POTASSIUM Cl (KCl) 40 MEQ in NS 1,000 ML IV SCH (20:30)
[2018-02-09] MEDS: NYSTATIN SUSP 500000 UNIT/5 ML UDCUP PO SCH ×4 (05:14→20:39)
[2018-02-09] MEDS: LOPERAMIDE HCL 2 MG CAP PO PRN ×4 (05:20→22:33)
[2018-02-09] MEDS: POTASSIUM CL 20 MEQ TAB PO SCH (09:28)
[2018-02-09] MEDS: ERTAPENEM 1 GM in NS 100 ML IV SCH (09:28)
[2018-02-09] MEDS ORDERED: POTASSIUM CL 10 MEQ TAB PO ONE (10:20)
[2018-02-09] MEDS ORDERED: NS 1,000 ML IV SCH (10:30)
[2018-02-09] MEDS ORDERED: POTASSIUM CL 20 MEQ TAB PO ONE ×2 (10:45→20:11)
[2018-02-09 12:45] LABS: PLATELET COUNT 51 10^3/uL (150-400)
[2018-02-09] MEDS: PSYLLIUM METAMUCIL 1 PKT PO SCH (12:45)
--- NOTE | 2018-02-09 13:45 | SOAPPROG ---
SOAP Progress Note Assessment/Plan: Assessment: Patient is a 72 year old male with history of locally advance pancreatic cancer admitted for fever, nausea and vomiting and found to have bacteremia. #Serratia bacteremia. Likely biliary source, no signs of obstruction/occlusion of stent. LFTs are at or near baseline. CT on admission unremarkable. Need to check CBC. No fever today. -continue antibiotics per ID. Will change to oral. #Nausea and vomiting Eating lunch. #Pancreatic cancer No signs of progression on CT scan this admission. CA 19-9 trending down apparently. Follow-up with Dr. Chung, due for 2 more cycles - may decide to proceed with those or go right to PET/surgery given this complication. He has an appt next week for chemotherapy and asked him to keep appt, I delayed chemotherapy 1 week as will still be on antibiotics. Plan: - Abx per ID - Chemo delayed 1 week while clearing sepsis Subjective: Walked in schwartz. Objective: Vital Signs Temp Pulse Resp BP Pulse Ox 36.8 C 90 14 103/67 95 02/09/18 11:31 02/09/18 11:31 02/09/18 11:31 02/09/18 11:31 02/09/18 11:31 Laboratory Results 02/09/18 12:01 02/09/18 05:15 02/07/18 02/08/18 02/09/18 23:59 23:59 23:59 Intake Total 3220 575 400 Output Total 550 Balance 2670 575 400 PT 13.4 SEC (12.0-15.0) 02/05/18 20:00 INR 1.00 (0.83-1.16) 02/05/18 20:00 Physical Exam - Physical Exam General Appearance: alert, no apparent distress Respiratory: lungs clear Cardiac/Chest: regular rate, rhythm Abdomen: normal bowel sounds, non-tender Neuro/Psych: normal mood/affect, oriented x 3 ICD10 Worksheet Patient Problems: Problems Problem Status Onset Dehydration Acute Nausea and vomiting Acute Pancreatic cancer Acute Neutropenic fever Acute
--- NOTE | 2018-02-09 13:53 | PCMIDPN ---
Assessment/Plan: Assessment/Plan: * Serratia bacteremia likely a biliary etiology: Repeat blood cultures show clearing of bacteremia. Patient with persistent diarrhea and electrolyte abnormalities assess stating continued admission. Will continue ertapenem in interim. Once ready for discharge, plan to complete therapy with levofloxacin orally based on susceptibility profile of Serratia. Will plan 14 days total of therapy. Side effects of fluoroquinolone use including tendinopathy, confusion , hypoglycemia and need to avoid concomitant intake of polyvalent cations discussed with patient. 02/09/18 13:50 Subjective: Patient with persistent diarrhea although less prominent today. No abdominal pain. Objective: Vital Signs Temp Pulse Resp BP Pulse Ox 36.8 C 90 14 103/67 95 02/09/18 11:31 02/09/18 11:31 02/09/18 11:31 02/09/18 11:31 02/09/18 11:31 Laboratory Results 02/09/18 12:01 02/09/18 05:15 02/08/18 02/09/18 02/10/18 05:59 05:59 05:59 Intake Total 3370 725 Output Total 200 Balance 3170 725 Blood cultures 02/07/2018 no growth Serratia susceptibility reviewed showing susceptibility to quinolones - Physical Exam General Appearance: alert, no apparent distress EENT: No scleral icterus, No thrush, No conjunctival petechiae Respiratory: lungs clear, No respiratory distress Cardiac/Chest: regular rate, rhythm, other (Port nontender without erythema) Extremities: No inflammation Abdomen: non-tender, No distended ICD10 Worksheet Patient Problems: Problems Problem Status Onset Dehydration Acute Nausea and vomiting Acute Pancreatic cancer Acute Neutropenic fever Acute
[2018-02-09] MEDS ORDERED: PROTOCOL MAGNESIUM 1 DOSE IV PRN (13:56)
--- NOTE | 2018-02-09 13:56 | HOSPPROG ---
Hospitalist Progress Note Assessment/Plan: 72 yo M with hx of pancreatic cancer admitted with serratia bacteremia and diarrhea # Serratia bacteremia -query biliary / GI translocation source, note biliary stent. Cultures positive from 02/05, surveillance cultures from 02/07 with ngtd. * Cont Ertapenem, ID following, can possibly transition to levofloxacin at discharge #Localized pancreatic cancer: having hard time with chemo * He will discuss future chemotherapy plans with Dr. Chung #Diarrhea: PCR neg for c diff PRN Imodium but continued diarrhea. Will add metamucil to hopefully add bulk to stool #Hypokalemia: has continued to trend down, 2.9 the low, on electrolyte protocol , related to above #Mild lactic acidosis: starvation ketoses, dehydration. * Normalized # pancytopenia: has continued to trend down, will continue to monitor #Thrush: nystatin, will continue for a total of 10 days #Diet: regular IP status, will require another 1-2 days in house, needs improvement in diarrhea to discharge Subjective: patient notes that he is overall feeling better, he does continue to have diarrhea despite taking immodium Objective: Vital Signs Temp Pulse Resp BP Pulse Ox 36.8 C 90 14 103/67 95 02/09/18 11:31 02/09/18 11:31 02/09/18 11:31 02/09/18 11:31 02/09/18 11:31 Laboratory Results 02/09/18 12:01 02/09/18 05:15 02/08/18 02/09/18 02/10/18 05:59 05:59 05:59 Intake Total 3370 725 Output Total 200 Balance 3170 725 PT 13.4 SEC (12.0-15.0) 02/05/18 20:00 INR 1.00 (0.83-1.16) 02/05/18 20:00 awake alert anicteric op clear rrr no mrg cta b soft nt nd no cce warm dry well perfused oriented appropriate ICD10 Worksheet Patient Problems: Problems Problem Status Onset Neutropenic fever Acute Dehydration Acute Nausea and vomiting Acute Pancreatic cancer Acute
--- NOTE | 2018-02-09 14:52 | ASMTCMCOM ---
CM Note CM Note Notes: 02/09/2018 Case Management Note Reviewed chart. Per 02/09 ID note pt to d/c on oral antibiotics. Anticipating d/c early in the week. Per case management note on 02/07 pt is open with [facility] RN but uncertain if needed upon discharge. PT eval pending. Case Management d/c poc: to be determined. Case Management to follow. Date Signed: 02/09/2018 02:51 PM Electronically Signed By:Karen Stewart RN
[2018-02-09 17:33] LABS: PLATELET COUNT 51 10^3/uL (150-400)
[2018-02-09] MEDS ORDERED: MAGNESIUM SULF 1 GM/DEXTROSE 100 ML IV ONE (20:12)
[2018-02-09] MEDS: POTASSIUM Cl (KCl) 40 MEQ in NS 1,000 ML IV SCH (20:36)
[2018-02-10] MEDS: NYSTATIN SUSP 500000 UNIT/5 ML UDCUP PO SCH ×4 (05:01→20:00)
[2018-02-10 05:14] LABS: PLATELET COUNT 55 10^3/uL (150-400)
[2018-02-10] MEDS: POTASSIUM Cl (KCl) 40 MEQ in NS 1,000 ML IV SCH ×2 (07:45→19:52)
[2018-02-10] MEDS: PSYLLIUM METAMUCIL 1 PKT PO SCH (08:27)
[2018-02-10] MEDS: LOPERAMIDE HCL 2 MG CAP PO PRN (08:27)
[2018-02-10] MEDS: POTASSIUM CL 20 MEQ TAB PO SCH (08:27)
[2018-02-10] MEDS: ERTAPENEM 1 GM in NS 100 ML IV SCH (08:27)
[2018-02-10] MEDS: DIPHENOXYLATE/ATROPINE LOMOTIL 1 TAB PO SCH ×3 (12:52→20:00)
--- NOTE | 2018-02-10 13:08 | SOAPPROG ---
SOAP Progress Note Assessment/Plan: Assessment: Alex is a very pleasant 72-year-old male with history of pancreatic cancer. 1. Serratia bacteremia: This is likely from a biliary source. He is currently is receiving ertapenem. The plan is to transition him to Levaquin. 2. Diarrhea: His C diff was negative. I have discussed with the hospitalist with regards to increasing anti diarrheals. 3. Pancreatic cancer: He will follow up with Dr. Chung at discharge with regard to resuming chemotherapy. 02/10/18 13:05 Subjective: Continues to have ongoing diarrhea. He has had multiple loose bowel movements a day. He is tolerating everything by mouth currently. Objective: Vital Signs Temp Pulse Resp BP Pulse Ox 36.5 C 91 16 123/85 H 98 02/10/18 11:18 02/10/18 11:18 02/10/18 11:18 02/10/18 11:18 02/10/18 11:18 Laboratory Results 02/10/18 05:07 02/10/18 05:07 02/09/18 02/10/18 02/11/18 05:59 05:59 05:59 Intake Total 725 2620 Balance 725 2620 PT 13.4 SEC (12.0-15.0) 02/05/18 20:00 INR 1.00 (0.83-1.16) 02/05/18 20:00 General: Pleasant-appearing male appears in no acute distress HEENT: Opiates clear extraocular movements are intact pupils equal round reactive Cardiovascular: Regular rate and rhythm no murmurs gallops Pulmonary: Clear to auscultation bilateral Extremities: No cyanosis clubbing or edema, right port noted is accessed Skin: No lesions ICD10 Worksheet Patient Problems: Problems Problem Status Onset Dehydration Acute Nausea and vomiting Acute Pancreatic cancer Acute Neutropenic fever Acute
[2018-02-10] MEDS ORDERED: POTASSIUM CL 10 MEQ TAB PO ONE ×2 (15:21→19:38)
--- NOTE | 2018-02-10 15:32 | HOSPPROG ---
Hospitalist Progress Note Assessment/Plan: 72 yo M with hx of pancreatic cancer admitted with serratia bacteremia and diarrhea # Serratia bacteremia -query biliary / GI translocation source, note biliary stent. Cultures positive from 02/05, surveillance cultures from 02/07 with ngtd. * Cont Ertapenem, ID following, will transition to levofloxacin at discharge for total of 14 days #Localized pancreatic cancer: having hard time with chemo * He will discuss future chemotherapy plans with Dr. Chung #Diarrhea: PCR neg for c diff PRN Imodium but continued diarrhea, added scheduled lomotil and consider addition of tincture of opium if not resolving. #Hypokalemia: in the setting of above, on electrolyte protocol, improving #Mild lactic acidosis: starvation ketoses, dehydration. * Normalized # pancytopenia: has continued to trend down, will continue to monitor #Thrush: nystatin, will continue for a total of 10 days #Diet: regular IP status, needs improvement in diarrhea to discharge Subjective: no significant overnight events, patient currently feeling better but still having diarrhea every couple hours Objective: Vital Signs Temp Pulse Resp BP Pulse Ox 36.5 C 91 16 123/85 H 98 02/10/18 11:18 02/10/18 11:18 02/10/18 11:18 02/10/18 11:18 02/10/18 11:18 Laboratory Results 02/10/18 05:07 02/10/18 05:07 02/09/18 02/10/18 02/11/18 05:59 05:59 05:59 Intake Total 725 2620 Balance 725 2620 PT 13.4 SEC (12.0-15.0) 02/05/18 20:00 INR 1.00 (0.83-1.16) 02/05/18 20:00 awake alert anicteric op clear rrr no mrg cta b soft nt nd no cce warm dry well perfused oriented appropriate ICD10 Worksheet Patient Problems: Problems Problem Status Onset Dehydration Acute Nausea and vomiting Acute Pancreatic cancer Acute Neutropenic fever Acute
[2018-02-10] MEDS ORDERED: POTASSIUM CL 20 MEQ/15 ML UDCUP PO ONE ×2 (16:30→19:45)
--- NOTE | 2018-02-10 16:40 | PCMIDPN ---
Assessment/Plan: Assessment: Serratia bacteremia secondary to likely biliary primary infection due to underlying pancreatic cancer and biliary tract stenting. Serratia is not identified outside of PCR probe. Awaiting formal identification and sensitivity. Meanwhile will continue the IV ertapenem daily. Plan would be for 2 weeks of treatment from negative cultures. Repeat blood cultures on are no growth to date. Agree with Levaquin once able for discharge. Plan: 1. Continue empiric IV ertapenem. 2. Complete treatment course for 2 weeks with oral Levaquin after discharge. Subjective: Patient is resting comfortably in his hospital bed. He states the diarrhea continues to be a problem although has been decreased so far this afternoon. No fevers or chills. Objective: Ertapenem # 4 Vital Signs Temp Pulse Resp BP Pulse Ox 36.4 C 91 16 127/83 H 95 02/10/18 15:34 02/10/18 15:34 02/10/18 15:34 02/10/18 15:34 02/10/18 15:34 Laboratory Results 02/10/18 05:07 02/10/18 05:07 02/09/18 02/10/18 02/11/18 05:59 05:59 05:59 Intake Total 725 2620 Balance 725 2620 - Physical Exam General Appearance: WD/WN, alert, no apparent distress, non-toxic Respiratory: lungs clear, normal breath sounds, No respiratory distress Cardiac/Chest: regular rate, rhythm, No tachycardia Skin: normal color, warm/dry, No rash Neuro/Psych: alert, normal mood/affect, oriented x 3 ICD10 Worksheet Patient Problems: Problems Problem Status Onset Dehydration Acute Nausea and vomiting Acute Pancreatic cancer Acute Neutropenic fever Acute
[2018-02-11] MEDS: POTASSIUM Cl (KCl) 40 MEQ in NS 1,000 ML IV SCH (05:18)
[2018-02-11] MEDS: DIPHENOXYLATE/ATROPINE LOMOTIL 1 TAB PO SCH ×2 (05:19→11:55)
[2018-02-11] MEDS: NYSTATIN SUSP 500000 UNIT/5 ML UDCUP PO SCH ×2 (05:20→11:43)
[2018-02-11 05:37] LABS: PLATELET COUNT 69 10^3/uL (150-400)
--- NOTE | 2018-02-11 08:07 | HOSPPROG ---
Hospitalist Progress Note Assessment/Plan: #Serratia bacteremia: likely biliary source. 2 weeks abx from negative culture ( 02/07). Will transition to LQ at discharge #SIRs: resolved #Localized pancreatic cancer: having hard time with chemo; been hospitalized 3x in past month -discussed palliative with he and daughter. He wants to d/w [facility] #Diarrhea: negative PCR #Mild lactic acidosis: starvation ketoses, dehydration. IVFs, repeat lab #Hypokalemia #Pancytopenia #Thrush: nystatin #Diet: regular #Disp: inpatient admission for fever/tachy, requiring IVFs, GI panel Subjective: min diarrhea this morning Objective: Vital Signs Temp Pulse Resp BP Pulse Ox 37.2 C 94 16 125/81 H 94 02/11/18 05:16 02/11/18 05:16 02/11/18 05:16 02/11/18 05:16 02/11/18 05:16 Laboratory Results 02/11/18 05:24 02/11/18 05:24 02/10/18 02/11/18 02/12/18 05:59 05:59 05:59 Intake Total 2620 2441 Output Total 500 Balance 2620 1941 PT 13.4 SEC (12.0-15.0) 02/05/18 20:00 INR 1.00 (0.83-1.16) 02/05/18 20:00 - Physical Exam Constitutional: cachectic Eyes: PERRL Ears, Nose, Mouth, Throat: moist mucous membranes Cardiovascular: regular rate and rhythym Respiratory: no respiratory distress Gastrointestinal: normoactive bowel sounds, distension, No tenderness, No ascites Genitourinary: no bladder fullness Skin: warm Musculoskeletal: other (port RU chest) Neurologic: AAOx3, CN II-XII Intact Psychiatric: interacting appropriately ICD10 Worksheet Patient Problems: Problems Problem Status Onset Dehydration Acute Nausea and vomiting Acute Pancreatic cancer Acute Neutropenic fever Acute
[2018-02-11 08:14] VITALS: BP 131/73
[2018-02-11] MEDS ORDERED: POTASSIUM CL 20 MEQ/15 ML UDCUP PO SCH (09:00)
[2018-02-11] MEDS ORDERED: guaiFENesin 600 MG TAB.ER PO SCH (09:00)
[2018-02-11] MEDS: PSYLLIUM METAMUCIL 1 PKT PO SCH (09:02)
[2018-02-11] MEDS: ERTAPENEM 1 GM in NS 100 ML IV SCH (09:02)
[2018-02-11] MEDS ORDERED: POTASSIUM CL 10 MEQ TAB PO ONE (10:41)
--- NOTE | 2018-02-11 13:17 | GDS ---
DISCHARGE DIAGNOSIS: 1. Chemo-related diarrhea. 2. Serratia bacteremia. 3. Localized pancreatic cancer. 4. Mild lactic acidosis. 5. Hypokalemia. 6. Pancytopenia. 7. Thrush. HISTORY OF PRESENT ILLNESS: A pleasant 72-year-old male with localized pancreatic cancer, who presented with fevers as high as 103. Stomach did not feel right. CT in the ER showed enteritis, and LFTs were mildly abnormal. He has completed 6 cycles of FOLFIRINOX, cycle #6 on 01/30. HOSPITAL COURSE BY PROBLEM: 1. Serratia bacteremia: abdominal source with underlying pancreatic cancer and biliary tract stenting. Complete atotal of 2 weeks of antibiotics from negative cultures on 02/07. Discharged on Levaquin. 2. Chemo-related diarrhea: PCR was negative. 3. Hypokalemia secondary to GI losses: Resume b.i.d. potassium at home. 4. Mild lactic acidosis: Starvation ketoacidosis with dehydration. This resolved. 5. Pancytopenia secondary to chemotherapy: Blood counts remain stable. Will need followup with his primary oncologist. 6. Thrush: Nystatin. DISPOSITION: Patient is tolerating diet well and wants to go home. He is discharged with . NEW MEDICATIONS: Lomotil, Levaquin. FOLLOWUP: 1. Dr. Chung. 2. Palliative Care has been consulted for outpatient followup. 3. Repeat CBC. Time spent on discharge: Greater than 30 minutes discussing medications, followup plan with patient, and coordinating discharge. /[id number]/MODL MTDD
--- NOTE | 2018-02-11 13:50 | ASMTLACE ---
LACE Length of stay for Answers: 4-6 days current admission Comorbidities - select Answers: Any tumor (including all that apply lymphoma or leukemia) # of Emergency department Answers: 1-2 visits in the last 6 months Score: 7 Date Signed: 02/11/2018 01:50 PM Electronically Signed By:Clementine Marshall RN
--- NOTE | 2018-02-11 13:53 | ASMTCMCOM ---
CM Note CM Note Notes: Per hospitalist the patient is medically cleared for discharge to home. Referral made for outpatient palliative care to [facility]. The patient is current with [facility] and they are notified for the resumption of services. CM availble should other needs arise. Plan: Dispo to home with [facility] and out patient Palliative Care referral. Date Signed: 02/11/2018 01:52 PM Electronically Signed By:Clementine Marshall RN
--- NOTE | 2018-02-11 20:13 | PDIAF ---
- Diagnosis Diagnosis: Serratia bacteremia Code Status: Full Code (Serratia) - Medication Management Discharge Medications: Medications to Continue on Transfer LORazepam [Ativan (*)] 0.5 mg SL Q4H PRN 01/08/18 [Last Taken Unknown] Ondansetron [Zofran Odt] 8 mg PO Q8 PRN 01/08/18 [Last Taken Unknown] Prochlorperazine Maleate [Compazine 10mg (*)] 10 mg PO Q6HRS PRN 01/08/18 [Last Taken Unknown] Diphenoxylate HCl/Atrop Sulf [Lomotil Tab (*)] 1 tab PO QID PRN #30 tab [Last Taken Unknown] Potassium Chloride 10 meq PO BID 02/05/18 [Last Taken 02/05/18] Diphenoxylate HCl/Atrop Sulf [Lomotil Tab (*)] 1 tab PO QID PRN #30 tab [Last Taken Unknown] Loperamide HCl [Imodium 2 mg (*)] 2 mg PO QID PRN cap 02/11/18 [Last Taken Unknown] Psyllium Seed [Metamucil (*)] 1 each PO DAILY pkt 02/11/18 [Last Taken Unknown] levOFLOXACIN [levAQUIN (*)] 750 mg PO DAILY #10 tab 02/11/18 [Last Taken Unknown ] Discharge Medications: Refer to the Discharge Home Medication list for PRN reason. - Orders Services needed: Home Care, Registered Nurse, Physical Therapy, Occupational Therapy Home Care Face to Face: I certify that this patient was under my care and that I had the required [id number] encounter meeting the encounter requirements on the discharge day. My findings support the fact that the patient is homebound as defined in Home Care Face to Face Continued: CMS Chapter 7 Medicare Benefits Manual 30.1.1 , The condition of the patient is such that there exists a normal inability to leave home and consequently, leaving home would require a considerable and taxing effort. Diet Recommendation: no restrictions on diet Diet Texture: Regular Texture Diet - Follow Up Care Current Providers and Referrals: Tere Vines MD [Primary Care Provider] - As per Instructions
== END 2018-02-11 14:17 | disposition home health service (06) | DRG 393 ==
LOC: F1N 22:13 → OBSVTOIN 02-06 18:26
PROVIDERS: ADMIT Internal Medicine; ATTEND Internal Medicine
DX: K52.1 Toxic gastroenteritis and colitis (principal); D61.810 Antineoplastic chemotherapy induced pancytopenia; C25.9 Malignant neoplasm of pancreas, unspecified; R78.81 Bacteremia; E87.2 Acidosis; B37.0 Candidal stomatitis; E86.0 Dehydration; T45.1X5A Adverse effect of antineoplastic and immunosuppressive drugs, initial encounter; E87.6 Hypokalemia
CPT/HCPCS: 97161-GP; 97165-GO; 97530-GO; G0378; G8978-GP-CI; G8979-GP-CH; G8987-GO-CJ; G8988-GO-CI; J0696; J1335; J2405; J3475; J3480; Q9967

== ENCOUNTER 2018-03-19 20:51 | Inpatient (IN) | payer OTHER ==
[2018-03-19] MEDS ORDERED: NS 1,000 ML IV ONE (21:04)
--- NOTE | 2018-03-19 21:10 | EDPHY ---
H & P Stated Complaint: fever last IV chemo 2 weeks ago Time Seen by Provider: 03/19/18 21:09 HPI/ROS: HPI: This is a 72-year-old male who presents with Chief Complaint: fever last IV chemo 2 weeks ago Location: body Quality: Fever Duration: 1-2 hours prior to arrival Signs and Symptoms: + fever, no nausea, no vomiting, no diarrhea, no urinary symptoms, no chest pain, no shortness of breath, no wheezing, no cough, no sore throat, no neck stiffness, no joint pain, no swollen glands, no ear pain, no rash Timing: Acute Severity: [id number] Context: Patient has a history of pancreatic cancer, status post chemotherapy round 7 approximately 2 weeks ago, presents with sudden onset of fever temporal 102 F approximately 1-2 hours prior to arrival accompanied by chills. He reports that he has some achiness in his stomach but no denies any abdominal pain, nausea, vomiting. He has had his influenza vaccine. Denies sore throat, cough, urinary symptoms, neck stiffness. Patient reports that he drank 2 L of water today. Chart review shows last admission for Serratia bacteremia 02/06- sensitive to ceftriaxone and fluoroquinolones. Modifying Factors: None Comment: ROS: A comprehensive 10 system review of systems is otherwise negative aside from elements mentioned in the history of present illness. MEDICAL/SURGICAL/SOCIAL HISTORY: Medical history: hernia/back, pancreatic CA, bacteremia Surgical history: Biliary stent Social history: , retired, nonsmoker. Family history noncontributory. CONSTITUTIONAL: Polite and cooperative, chronically ill-appearing, elderly white male, at bedside, awake and alert, no obvious distress HEENT: Atraumatic and normocephalic, PERRL, EOMI. Nares patent; no rhinorrhea; no nasal mucosal edema. Tympanic membranes clear. Oropharynx clear, no exudate and moist pink mucosa. Airway patent. No lymphadenopathy. No meningismus. Cardiovascular: Normal S1/S2, tachycardia, regular rhythm, without murmur rub or gallop. PULMONARY/CHEST: Symmetrical and nontender. Right power port noted on anterior chest wall. Clear to auscultation bilaterally. Good air movement. No accessory muscle usage. ABDOMEN: Soft, nondistended, nontender, no rebound, no guarding, no peritoneal signs, no masses or organomegaly. No CVAT. EXTREMITIES: 2/2 pulses, strength 5/5, no deformities, no clubbing, no cyanosis or edema. NEUROLOGICAL: no focal neuro deficits. GCS 15. SKIN: Warm and dry, pallor, no erythema. no rash. Good capillary refill. Source: Patient, Family, Old records Exam Limitations: No limitations - Personal History Current Tetanus/Diphtheria Vaccine: Yes Current Tetanus Diphtheria and Acellular Pertussis (TDAP): Yes - Medical/Surgical History Hx Asthma: No Hx Chronic Respiratory Disease: No Hx Diabetes: No Hx Cardiac Disease: No Hx Renal Disease: No Hx Cirrhosis: No Hx Alcoholism: No Hx HIV/AIDS: No Hx Splenectomy or Spleen Trauma: No Other PMH: hernia/back, pancreatic CA - Social History Smoking Status: Never smoked Constitutional: Initial Vital Signs Temperature (C) 37.9 C 03/19/18 20:56 Heart Rate 117 H 03/19/18 20:56 Respiratory Rate 16 03/19/18 20:56 Blood Pressure 143/84 H 03/19/18 20:56 O2 Sat (%) 95 03/19/18 20:56 O2 Delivery Mode Room Air Allergies/Adverse Reactions: Sulfa (Sulfonamide Antibiotics) Allergy (Verified 03/19/18 20:58) passed out Home Medications: Medication Instructions Recorded LORazepam [Ativan (*)] 0.5 mg SL Q4H PRN 01/08/18 Ondansetron [Zofran Odt] 8 mg PO Q8 PRN 01/08/18 Prochlorperazine Maleate 10 mg PO Q6HRS PRN 01/08/18 [Compazine 10mg (*)] Potassium Chloride 10 meq PO BID 02/05/18 Diphenoxylate HCl/Atrop Sulf 1 tab PO QID PRN #30 tab 02/11/18 [Lomotil Tab (*)] Loperamide HCl [Imodium 2 mg (*)] 2 mg PO QID PRN cap 02/11/18 Psyllium Seed [Metamucil (*)] 1 each PO DAILY pkt 02/11/18 Medical Decision Making - Diagnostics Imaging Results: Imaging Impressions Chest X-Ray 03/19/18 21:08 Impression: Stable negative chest. ED Course/Re-evaluation: Vital signs reviewed and show heart rate 117 beats per minute. IV access and laboratory studies including blood cultures and lactic acid ordered. Also ordered chest x-ray, urinalysis and respiratory pathogen swab for source. Given 1 L normal saline and Tylenol 650 mg 2143: Labs reviewed. WBC 16 K, H&H 10.8/33.7-macrocytic type, platelets a 104 K, lactic acid 1.2 Chest x-ray my read shows no opacity, no effusion, no pneumothorax. 2200: lunchroom monitor showed a short run of V-tach. Patient was getting up to use the restroom at the time. Asymptomatic. Urinalysis shows no signs of infection. Patient does not meet sepsis criteria. 2203: ED decision to consult for admission pancreatic cancer in fever. Suspect bacteremia but source of fever unknown at this time. Spoke with hospitalist, Dr. Hickman, who kindly agrees to admit patient for further care. Spoke with Infectious Disease, Dr. Jacob Huff, regarding antibiotic choice. He recommends IV meropenem 1 g every 8 hr. He kindly agrees to consult on the patient. This patient was seen under the supervision of my secondary supervising physician. I evaluated care for this patient independently. Discussed this patient with Dr. García. Differential Diagnosis: Adult fever including but not limited to viral syndromes including influenza, urinary tract infection, pneumonia and sepsis. - Data Points Laboratory Results: Laboratory Results 03/19/18 21:30 03/19/18 21:30 03/19/18 03/19/18 03/19/18 22:00 21:30 21:30 WBC 16.47 10^3/uL H 10^3/uL (3.80-9.50) RBC 3.22 10^6/uL L 10^6/uL (4.40-6.38) Hgb 10.8 g/dL L g/dL (13.7-17.5) Hct 33.7 % L % (40.0-51.0) MCV 104.7 fL H fL (81.5-99.8) MCH 33.5 pg pg (27.9-34.1) MCHC 32.0 g/dL L g/dL (32.4-36.7) RDW 17.2 % H % (11.5-15.2) Plt Count 104 10^3/uL L 10^3/uL (150-400) MPV 10.3 fL fL (8.7-11.7) Neut % (Auto) Not Reported Lymph % (Auto) Not Reported Phelps % (Auto) Not Reported Eos % (Auto) Not Reported Baso % (Auto) Not Reported Nucleat RBC Rel Count Not Reported Absolute Neuts (auto) Not Reported Absolute Lymphs (auto) Not Reported Absolute Monos (auto) Not Reported Absolute Eos (auto) Not Reported Absolute Basos (auto) Not Reported Absolute Nucleated RBC Not Reported Immature Gran % Not Reported Seg Neutrophils % 93.0 % % Band Neutrophils % 0.0 % % Lymphocytes % 3.0 % % Monocytes % 4.0 % % Eosinophils % 0.0 % % Basophils % 0.0 % % Metamyelocytes % 0.0 % % Myelocytes % 0.0 % % Promyelocytes % 0.0 % % Blast Cells % 0.0 % % Immature Gran # Not Reported Absolute Seg Neuts 15.32 10^3/uL H 10^3/uL (1.70-6.50) Absolute Band Neuts 0.00 10^3/uL 10^3/uL (0.00-0.70) Absolute Lymphocytes 0.49 10^3/uL L 10^3/uL (1.00-3.00) Absolute Monocytes 0.66 10^3/uL 10^3/uL (0.30-0.80) Absolute Eosinophils 0.00 10^3/uL L 10^3/uL (0.03-0.40) Absolute Basophils 0.00 10^3/uL L 10^3/uL (0.02-0.10) Absolute Metamyelocyte 0.00 10^3/mL 10^3/mL (0.00-0.00) Absolute Myelocytes 0.00 10^3/mL 10^3/mL (0.00-0.00) Absolute Promyelocytes 0.00 10^3/uL 10^3/uL (0.00-0.00) Absolute Plasma Cells 0.00 10^3/uL 10^3/uL (0.00-0.00) Nucleated RBCs 0 /100 WBC /100 WBC (0-0) Absolute Blast Cells 0.00 10^3/uL 10^3/uL (0.00-0.00) Plasma Cells % 0.0 % % Platelet Estimate DECREASED L (ADEQ) Oval Macrocytes 1+ H VBG Lactic Acid 1.2 mmol/L mmol/L (0.7-2.1) Sodium Potassium Chloride Carbon Dioxide Anion Gap BUN Creatinine Estimated GFR Glucose Calcium Total Bilirubin Conjugated Bilirubin Unconjugated Bilirubin AST ALT Alkaline Phosphatase Total Protein Albumin Urine Color YELLOW Urine Appearance HAZY Urine pH 6.0 (5.0-7.5) Ur Specific Kermit 1.012 (1.002-1.030) Urine Protein NEGATIVE (NEGATIVE) Urine Ketones NEGATIVE (NEGATIVE) Urine Blood NEGATIVE (NEGATIVE) Urine Nitrate NEGATIVE (NEGATIVE) Urine Bilirubin NEGATIVE (NEGATIVE) Urine Urobilinogen NEGATIVE EU EU (0.2-1.0) Ur Leukocyte Esterase NEGATIVE (NEGATIVE) Urine Glucose NEGATIVE (NEGATIVE) 03/19/18 21:30 WBC RBC Hgb Hct MCV MCH MCHC RDW Plt Count MPV Neut % (Auto) Lymph % (Auto) Phelps % (Auto) Eos % (Auto) Baso % (Auto) Nucleat RBC Rel Count Absolute Neuts (auto) Absolute Lymphs (auto) Absolute Monos (auto) Absolute Eos (auto) Absolute Basos (auto) Absolute Nucleated RBC Immature Gran % Seg Neutrophils % Band Neutrophils % Lymphocytes % Monocytes % Eosinophils % Basophils % Metamyelocytes % Myelocytes % Promyelocytes % Blast Cells % Immature Gran # Absolute Seg Neuts Absolute Band Neuts Absolute Lymphocytes Absolute Monocytes Absolute Eosinophils Absolute Basophils Absolute Metamyelocyte Absolute Myelocytes Absolute Promyelocytes Absolute Plasma Cells Nucleated RBCs Absolute Blast Cells Plasma Cells % Platelet Estimate Oval Macrocytes VBG Lactic Acid Sodium 134 mEq/L L mEq/L (135-145) Potassium 3.6 mEq/L mEq/L (3.3-5.0) Chloride 100 mEq/L mEq/L (97-110) Carbon Dioxide 25 mEq/l mEq/l (22-31) Anion Gap 9 mEq/L mEq/L (6-14) BUN 16 mg/dL mg/dL (7-23) Creatinine 0.7 mg/dL mg/dL (0.7-1.3) Estimated GFR > 60 Glucose 113 mg/dL H mg/dL (70-100) Calcium 9.3 mg/dL mg/dL (8.5-10.4) Total Bilirubin 0.4 mg/dL mg/dL (0.1-1.4) Conjugated Bilirubin 0.2 mg/dL mg/dL (0.0-0.5) Unconjugated Bilirubin 0.2 mg/dL mg/dL (0.0-1.1) AST 80 IU/L H IU/L (17-59) ALT 96 IU/L H IU/L (21-72) Alkaline Phosphatase 221 IU/L H IU/L (38-126) Total Protein 6.5 g/dL g/dL (6.3-8.2) Albumin 3.5 g/dL g/dL (3.5-5.0) Urine Color Urine Appearance Urine pH Ur Specific Kermit Urine Protein Urine Ketones Urine Blood Urine Nitrate Urine Bilirubin Urine Urobilinogen Ur Leukocyte Esterase Urine Glucose Medications Given: Discontinued Medications Acetaminophen (Tylenol) 650 mg PO EDNOW ONE Stop: 03/19/18 22:07 Last Admin: 03/19/18 22:11 Dose: 650 mg Sodium Chloride (Ns) 1,000 mls @ 0 mls/hr IV ONCE ONE; Wide Open PRN Reason: Protocol Stop: 03/19/18 21:05 Last Admin: 03/19/18 21:30 Dose: 1,000 mls Departure - Departure Disposition: [facility] Inpatient Acute Clinical Impression: Fever and chills Pancreatic cancer Qualifiers: Pancreatic malignancy location: unspecified Qualified Code(s): C25.9 - Malignant neoplasm of pancreas, unspecified Condition: Fair
[2018-03-19 21:40] LABS: PLATELET COUNT 104 10^3/uL (150-400)
[2018-03-19] MEDS ORDERED: ACETAMINOPHEN 325 MG TAB PO ONE (22:06)
[2018-03-19] MEDS ORDERED: ONDANSETRON 4 MG/2 ML VIAL IVP PRN (22:17)
[2018-03-19] MEDS ORDERED: ONDANSETRON DISINTEGRATING 4 MG TAB PO PRN (22:17)
[2018-03-19] MEDS ORDERED: ACETAMINOPHEN 325 MG TAB PO PRN (22:17)
[2018-03-19] MEDS ORDERED: MEROPENEM 1 GM in NS 100 ML IV ONE (22:20)
--- NOTE | 2018-03-19 23:01 | PDGENHP ---
History and Physical - Chief Complaint Fever - History of Present Illness 72 yo M w/ hx of pancreatic CA presents with fever. He reports feeling alternating chills/sweats this afternoon. He check his temperature and found it to be elevated. He denies symptoms aside from mild abdominal discomfort. He denies naun pain or vomiting. He also denies diarrhea or blood in stools. Of note, he was admitted recently with very similar presentation and found to have Serratia bacteremia, which was presumed to be from a biliary source noting his pancreatic cancer. He last had chemotherapy 13 days ago. He has a right upper chest port but he denies any issues or pain related to this. Case discussed with ED RENETTA Pham; records reviewed in EMR and summarized above. History Information - Allergies/Home Medication List Allergies/Adverse Reactions: Sulfa (Sulfonamide Antibiotics) Allergy (Verified 03/19/18 20:58) passed out Home Medications: LORazepam [Ativan (*)] 0.5 mg SL Q4H PRN 01/08/18 [Last Taken 3 Days Ago ~] Ondansetron [Zofran Odt] 8 mg PO Q8 PRN 01/08/18 [Last Taken 03/18/18] Prochlorperazine Maleate [Compazine 10mg (*)] 10 mg PO Q6HRS PRN 01/08/18 [Last Taken 03/18/18] Potassium Chloride 10 meq PO BID 02/05/18 [Last Taken 03/19/18 19:00] I have personally reviewed and updated: family history, medical history - Past Medical History cancer (Pancreatic) - Surgical History Reports: hernia repair - Family History Additional family history: Asked, denies - Social History Smoking Status: Never smoked Review of Systems Review of Systems: ROS: 10pt was reviewed & negative except for what was stated in HPI & below Physical Exam Physical Exam: Temp Pulse Resp BP Pulse Ox 37.6 C 104 H 18 116/78 95 03/19/18 22:07 03/19/18 22:49 03/19/18 22:49 03/19/18 22:49 03/19/18 22:49 Constitutional: no apparent distress, chronically ill appearing Eyes: PERRL, EOMI Ears, Nose, Mouth, Throat: moist mucous membranes, no oral mucosal ulcers Cardiovascular: regular rate and rhythym, no murmur, rub, or gallop Respiratory: no respiratory distress, clear to auscultation Gastrointestinal: normoactive bowel sounds, soft, non-tender abdomen Skin: warm, other (RU chest port without signs of infection) Musculoskeletal: full muscle strength, no muscle tenderness Neurologic: AAOx3, CN II-XII Intact Psychiatric: interacting appropriately, not anxious Lab Data & Imaging Review 03/19/18 21:30 03/19/18 21:30 WBC 16.47 10^3/uL (3.80-9.50) H 03/19/18 21:30 RBC 3.22 10^6/uL (4.40-6.38) L 03/19/18 21:30 Hgb 10.8 g/dL (13.7-17.5) L 03/19/18 21: Hct 33.7 % (40.0-51.0) L 03/19/18 21:30 MCV 104.7 fL (81.5-99.8) H 03/19/18 21: MCH 33.5 pg (27.9-34.1) 03/19/18 21: MCHC 32.0 g/dL (32.4-36.7) L 03/19/18 21: RDW 17.2 % (11.5-15.2) H 03/19/18 21:30 Plt Count 104 10^3/uL (150-400) L 03/19/18 21:30 MPV 10.3 fL (8.7-11.7) 03/19/18 21:30 Neut % (Auto) Not Reported 03/19/18 21:30 Lymph % (Auto) Not Reported 03/19/18 21:30 [place] % (Auto) Not Reported 03/19/18 21:30 Eos % (Auto) Not Reported 03/19/18 21:30 Baso % (Auto) Not Reported 03/19/18 21:30 Nucleat RBC Rel Count Not Reported 03/19/18 21:30 Absolute Neuts (auto) Not Reported 03/19/18 21:30 Absolute Lymphs (auto) Not Reported 03/19/18 21:30 Absolute Monos (auto) Not Reported 03/19/18 21:30 Absolute Eos (auto) Not Reported 03/19/18 21:30 Absolute Basos (auto) Not Reported 10/31/18 21:30 Absolute Nucleated RBC Not Reported 03/19/18 21:30 Immature Gran % Not Reported 03/19/18 21:30 Seg Neutrophils % 93.0 % 03/19/18 21:30 Band Neutrophils % 0.0 % 03/19/18 21:30 Lymphocytes % 3.0 % 03/19/18 21:30 Monocytes % 4.0 % 03/19/18 21:30 Eosinophils % 0.0 % 03/19/18 21:30 Basophils % 0.0 % 03/19/18 21:30 Metamyelocytes % 0.0 % 03/19/18 21:30 Myelocytes % 0.0 % 03/19/18 21:30 Promyelocytes % 0.0 % 03/19/18 21:30 Blast Cells % 0.0 % 03/19/18 21:30 Immature Gran # Not Reported 03/19/18 21:30 Absolute Seg Neuts 15.32 10^3/uL (1.70-6.50) H 03/19/18 21:30 Absolute Band Neuts 0.00 10^3/uL (0.00-0.70) 03/19/18 21:30 Absolute Lymphocytes 0.49 10^3/uL (1.00-3.00) L 03/19/18 21:30 Absolute Monocytes 0.66 10^3/uL (0.30-0.80) 03/19/18 21:30 Absolute Eosinophils 0.00 10^3/uL (0.03-0.40) L 03/19/18 21:30 Absolute Basophils 0.00 10^3/uL (0.02-0.10) L 03/19/18 21:30 Absolute Metamyelocyte 0.00 10^3/mL (0.00-0.00) 03/19/18 21:30 Absolute Myelocytes 0.00 10^3/mL (0.00-0.00) 03/19/18 21:30 Absolute Promyelocytes 0.00 10^3/uL (0.00-0.00) 03/19/18 21:30 Absolute Plasma Cells 0.00 10^3/uL (0.00-0.00) 03/19/18 21:30 Nucleated RBCs 0 /100 WBC (0-0) 03/19/18 21:30 Absolute Blast Cells 0.00 10^3/uL (0.00-0.00) 03/19/18 21:30 Plasma Cells % 0.0 % 03/19/18 21:30 Platelet Estimate DECREASED (ADEQ) L 03/19/18 21:30 Oval Macrocytes 1+ H 03/19/18 21:30 VBG Lactic Acid 1.2 mmol/L (0.7-2.1) 03/19/18 21:30 Sodium 134 mEq/L (135-145) L 03/19/18 21:30 Potassium 3.6 mEq/L (3.3-5.0) 03/19/18 21:30 Chloride 100 mEq/L (97-110) 03/19/18 21:30 Carbon Dioxide 25 mEq/l (22-31) 03/19/18 21:30 Anion Gap 9 mEq/L (6-14) 03/19/18 21:30 BUN 16 mg/dL (7-23) 03/19/18 21:30 Creatinine 0.7 mg/dL (0.7-1.3) 03/19/18 21:30 Estimated GFR > 60 03/19/18 21:30 Glucose 113 mg/dL (70-100) H 03/19/18 21:30 Calcium 9.3 mg/dL (8.5-10.4) 03/19/18 21:30 Total Bilirubin 0.4 mg/dL (0.1-1.4) 03/19/18 21:30 Conjugated Bilirubin 0.2 mg/dL (0.0-0.5) 03/19/18 21:30 Unconjugated Bilirubin 0.2 mg/dL (0.0-1.1) 03/19/18 21:30 AST 80 IU/L (17-59) H 03/19/18 21:30 ALT 96 IU/L (21-72) H 03/19/18 21:30 Alkaline Phosphatase 221 IU/L (38-126) H 03/19/18 21:30 Total Protein 6.5 g/dL (6.3-8.2) 03/19/18 21:30 Albumin 3.5 g/dL (3.5-5.0) 03/19/18 21:30 Urine Color YELLOW 03/19/18 22:00 Urine Appearance HAZY 03/19/18 22:00 Urine pH 6.0 (5.0-7.5) 03/19/18 22:00 Ur Specific [place] 1.012 (1.002-1.030) 03/19/18 22:00 Urine Protein NEGATIVE (NEGATIVE) 03/19/18 22:00 Urine Ketones NEGATIVE (NEGATIVE) 03/19/18 22:00 Urine Blood NEGATIVE (NEGATIVE) 03/19/18 22:00 Urine Nitrate NEGATIVE (NEGATIVE) 03/19/18 22:00 Urine Bilirubin NEGATIVE (NEGATIVE) 03/19/18 22:00 Urine Urobilinogen NEGATIVE EU (0.2-1.0) 03/19/18 22:00 Ur Leukocyte Esterase NEGATIVE (NEGATIVE) 03/19/18 22:00 Urine Glucose NEGATIVE (NEGATIVE) 03/19/18 22:00 Imaging Review: Imaging Impressions Chest X-Ray 03/19/18 21:08 Impression: Stable negative chest. Assessment & Plan Assessment: 72 yo M w/ pancreatic CA presents with fever. Plan: 1. Fever - Very similar presentation to last admission (abdominal discomfort, abnormal LFTs) where he was found to have Serratia bacteremia. This was presumed to be from a biliary source noting pancreatic cancer. During last admission he was treated with Meropenem followed by levofloxacin to complete 14 day course, which he was compliant with. - Repeat blood cultures - Meropenem 1g IV q8h per ID - ID consulted, appreciate assistance 2. Pancreatic CA - Last chemotherapy on 03/06. 3. Abnormal LFTs - Pattern suggestive of mild inflammation; I suspect this is related to #1. - Antibiotics as above 4. Anemia - Stable from prior, suspect multifactorial from chemotherapy and chronic inflammation. - Monitor CBC. 5. Thrombocytopenia - Mildly improved from prior values. Diet - Regular Code - Full Ppx - LMWH Dispo - Admit under inpatient status
[2018-03-20] MEDS: MEROPENEM 1 GM in NS 100 ML IV SCH ×3 (05:10→21:45)
[2018-03-20 05:40] LABS: PLATELET COUNT 94 10^3/uL (150-400)
[2018-03-20] MEDS: ENOXAPARIN 40 MG/0.4 ML SYR SC SCH (09:24)
--- NOTE | 2018-03-20 09:50 | HOSPPROG ---
Hospitalist Progress Note Assessment/Plan: 72 yo M w/ pancreatic CA presents with fever and abnormal LFTs. Was here about 6 weeks ago with similar presentation found to have Serratia bacteremia. #Fever: Low grade temp this AM. Not septic or neutropenic. Concern again for biliary source as nothing else localizing. - Follow blood cultures - Continue meropenem - RUQ ultrasound - ID consulted #Abnormal LFTs: Mild transaminitis. Not obstructive. Either 2/2 above or tumor invasion. - Eval/mgmt as above, trend #Pancreatic cancer: Followed by [facility], last chemo 03/06. - Reportedly had CT abd/pelvis last week that showed invasion of liver per patient report - Port site looks great #Anemia: Stable, no e/o bleeding. Multifactorial from chemo/chronic inflammation. #Thrombocytopenia: Stable. 2/2 chemo. Diet - Regular Code - Full Ppx - LMWH Dispo - Continue inpatient admission for further management and evaluation of fever. Subjective: Feeling the best he's felt in weeks. Abd pain resolved after had BM this AM. No n/v. No other complaints. Objective: Vital Signs Temp Pulse Resp BP Pulse Ox 37.0 C 95 27 H 108/75 94 03/20/18 07:34 03/20/18 07:34 03/20/18 07:34 03/20/18 07:34 03/20/18 07:34 Laboratory Results 03/20/18 05:00 03/20/18 05:00 03/19/18 03/20/18 03/21/18 05:59 05:59 05:59 Intake Total 1150 Output Total 700 Balance 450 - Physical Exam Constitutional: no apparent distress, appears nourished, not in pain Eyes: PERRL, anicteric sclera, EOMI Ears, Nose, Mouth, Throat: moist mucous membranes, hearing normal, ears appear normal, no oral mucosal ulcers Cardiovascular: regular rate and rhythym, no murmur, rub, or gallop Respiratory: no respiratory distress, no rales or rhonchi, clear to auscultation Gastrointestinal: normoactive bowel sounds, soft, non-tender abdomen, no palpable masses Genitourinary: no bladder fullness, no bladder tenderness, no renal bruits Skin: other (right chest port c/d/i) Musculoskeletal: full muscle strength, no muscle tenderness, normal joint ROM Neurologic: AAOx3, sensation intact bilaterally Psychiatric: interacting appropriately, not anxious, not encephalopathic, thought process linear ICD10 Worksheet Patient Problems: Problems Problem Status Onset Fever and chills Acute Pancreatic cancer Acute Dehydration Acute Nausea and vomiting Acute Neutropenic fever Acute
--- NOTE | 2018-03-20 10:01 | ASMTCMCOM ---
CM Note CM Note Notes: Chart reviewed. Patient admitted via ED with fever. 72 year old male with diagnosis of pancreatic cancer. Last discharged with [facility] palliative outpatient care and [facility]. CM to [facility] for needs. Plan: TBD Date Signed: 03/20/2018 10:00 AM Electronically Signed By:Clementine Marshall RN
--- NOTE | 2018-03-20 10:37 | PDMN ---
Medical Necessity Medical necessity: Pt meets inpt criteria per MD order and MCG M-160, Sepsis and Other Febrile Illness, without Focal Infection. 72 y/o w/pancreatic cancer admitted w/fever, abd discomfort, and elevated LFT's, possible bacteremia. Pt hospitalized about 6 wks ago w/Serratia bacteremia now w/similar presentation. IV ABX's, ID consult, following blood cultures, RUQ US pending. Other comorbidities include thrombocytopenia and anemia (last chemo 03/06). Anticipate >2MN for ongoing eval/management of above.
--- NOTE | 2018-03-20 14:26 | PCMIDPN ---
Assessment/Plan: # Febrile illness, last than 24 hr, undergoing chemotherapy for pancreatic cancer. No neutropenia or sepsis. Source of infection seems most likely related to biliary tree. No respiratory, abdominal, symptoms. T-max 38.5 degrees at 5:00 a.m. This morning. Symptomatic improvement today. --continue empiric meropenem in light of past history of Serratia which can have inducible resistance to cephalosporins --will continue to follow cultures and await results of right upper quadrant ultrasound Medications Meropenem 1 g IV Q 8 Micro 03/19 respiratory PCR: negative 03/19 blood cultures (2) pending Imaging Right upper quadrant ultrasound: pending Chest x-ray: negative for infiltrate Subjective: 72-year-old male in his usual state of health until developing a fever 03/19 at around 6:00 p.m. Patient denies any preceding symptoms of abdominal pain, respiratory illness, URI symptoms, diarrhea, rash. Last chemotherapy was 2017. No sick contacts or recent travel. Patient feels significantly better today and want to go home [place]. Objective: Vital Signs Temp Pulse Resp BP Pulse Ox 36.9 C 86 26 H 108/63 96 03/20/18 11:46 03/20/18 11:46 03/20/18 11:46 03/20/18 11:46 03/20/18 11:46 Laboratory Results 03/20/18 05:00 03/20/18 05:00 03/19/18 03/20/18 03/21/18 05:59 05:59 05:59 Intake Total 1150 Output Total 700 Balance 450 Laboratory Tests 03/19/18 03/19/18 03/19/18 21:30 21:30 22:00 WBC 16.47 H Hct 33.7 L Plt Count 104 L Seg Neutrophils % 93.0 Creatinine AST 80 H ALT 96 H Alkaline Phosphatase 221 H Total Protein 6.5 Albumin 3.5 Urine pH 6.0 Ur Specific [place] 1.012 Urine Nitrate NEGATIVE Ur Leukocyte Esterase NEGATIVE Urine Glucose NEGATIVE 03/20/18 03/20/18 05:00 05:00 WBC 14.10 H Hct 29.7 L Plt Count 94 L Seg Neutrophils % 82.8 Creatinine 0.5 L AST ALT Alkaline Phosphatase Total Protein Albumin Urine pH Ur Specific [place] Urine Nitrate Ur Leukocyte Esterase Urine Glucose - Physical Exam General Appearance: alert, no apparent distress EENT: pale conjunctiva, poor dentition, other (no oral ulcerations), No scleral icterus, No thrush Respiratory: lungs clear, normal breath sounds, No accessory muscle use Neck: supple Cardiac/Chest: regular rate, rhythm (some irregularity) Extremities: No pedal edema Abdomen: non-tender, soft, other (Bowel sound slightly decreased), No distended Male Genitalia: No michele Skin: pallor, No rash Neuro/Psych: alert, normal mood/affect, oriented x 3 - Line/s Mediport Lines: No drainage, No erythema - Time Spent With Patient Time Spent with Patient: greater than 35 minutes Time Spent with Patient: Greater than 35 minutes spent on this patients care, greater than 50% of time spent counseling, educating, and coordinating care regarding the above mentioned plan. ICD10 Worksheet Patient Problems: Problems Problem Status Onset Fever and chills Acute Pancreatic cancer Acute Dehydration Acute Nausea and vomiting Acute Neutropenic fever Acute
[2018-03-21] MEDS ORDERED: SIMETHICONE 80 MG TAB CHEW PO PRN (02:36)
[2018-03-21] MEDS ORDERED: POLYETHYLENE GLYCOL 3350 17 GM PKT PO PRN (02:37)
[2018-03-21] MEDS ORDERED: LACTULOSE 20 GM/30 ML UDCUP PO PRN (02:37)
[2018-03-21] MEDS ORDERED: BISACODYL 10 MG SUPP PR PRN (02:37)
[2018-03-21] MEDS ORDERED: MAGNESIUM HYDROXIDE 30 ML UDCUP PO PRN (02:37)
[2018-03-21] MEDS: MEROPENEM 1 GM in NS 100 ML IV SCH ×3 (06:00→22:17)
[2018-03-21] MEDS: SENNOSIDES/DOCUSATE SODIUM TAB PO SCH ×2 (09:45→21:20)
[2018-03-21] MEDS: ENOXAPARIN 40 MG/0.4 ML SYR SC SCH (09:48)
--- NOTE | 2018-03-21 10:05 | PCMIDPN ---
Assessment/Plan: # Febrile illness associated w elevated LFTs and leukocytosis. Undergoing chemo for pancreatic cancer. LFTs and WBC remain elevated today and increased abdominal pain. US fairly unremarkable yesterday but suspect some level of increased biliary obstruction --reviewed CT scan from 03/13: no biliary dilation but w/i stent there is more debris, increased size of pancreatic head mass & increased metastatic disease in --continue meropenem, h/o serratia which typically has inducible resistance to cephalosporins --GI to be consulted to determine MRCP vs repeat CT vs ERCP Medications Meropenem 1 g IV Q 8h, #2 Micro 03/19 respiratory PCR: negative 03/19 blood cultures (2)NGTD Subjective: increase abdominal discomfort and distension, mid epigastric region no diarrhea no vomiting Objective: Vital Signs Temp Pulse Resp BP Pulse Ox 36.8 C 96 16 116/80 94 03/21/18 08:08 03/21/18 08:08 03/21/18 08:08 03/21/18 08:08 03/21/18 08:08 Laboratory Results 03/21/18 03:35 03/21/18 03:35 03/20/18 03/21/18 03/22/18 05:59 05:59 05:59 Intake Total 1150 1700 Output Total 700 1 Balance 450 1699 - Physical Exam General Appearance: alert, no apparent distress EENT: poor dentition, No thrush Respiratory: lungs clear, No accessory muscle use Neck: supple Cardiac/Chest: regular rate, rhythm Extremities: No pedal edema Abdomen: normal bowel sounds, non-tender, soft, No distended Skin: pallor, No rash Neuro/Psych: alert, normal mood/affect, oriented x 3 - Line/s Mediport Lines: No drainage, No erythema - Time Spent With Patient Time Spent with Patient: greater than 35 minutes (care coordinated w hospitalist , GI) Time Spent with Patient: Greater than 35 minutes spent on this patients care, greater than 50% of time spent counseling, educating, and coordinating care regarding the above mentioned plan. ICD10 Worksheet Patient Problems: Problems Problem Status Onset Fever and chills Acute Pancreatic cancer Acute Dehydration Acute Nausea and vomiting Acute Neutropenic fever Acute
[2018-03-21] MEDS ORDERED: oxyCODONE IR 5 MG TAB PO PRN (11:08)
[2018-03-21] MEDS ORDERED: LORazepam 0.5 MG TAB PO PRN (11:08)
--- NOTE | 2018-03-21 12:23 | GCON ---
REFERRING PHYSICIAN: Robert Garcia MD REASON FOR CONSULTATION: For elevated liver tests and fever. Dear Dr. Garcia: Thank you very kindly for asking me to evaluate the patient in consultation for a chief complaint of generalized abdominal pain, increased LFTs and fever, suspicious to be due to biliary obstruction. Santi patel has known pancreatic malignancy with metastatic disease to the liver, who underwent biliary stentin g in October with a covered biliary metal stent. He was found to have a gram-negative keyanna bacteremia in January of this year and was admitted for fever. He has had persistent problems with generalized and diffuse abdominal pain that seems to be worse when he is supine. He does not describe this neces sarily as being any different. He was, however, admitted with a fever with a T-max of 37.6. Blood c ultures are pending. His white count is also elevated. His LFTs again show a mild cholestasis with some transaminitis. A CT scan done at [facility] for surveillance of his pancreati c cancer and response to treatment did show some intraductal debris. An ultrasound performed on this admission showed biliary ductal dilatation that might be slightly worse than previous. There is aga in noted on the ultrasound the pancreatic mass with biliary stent in place. There are a few liver le sions seen. There is gallbladder debris. There is also pneumobilia which is likely due to the stent placement. I am asked to assist with further evaluation and management. PAST MEDICAL HISTORY: Pancreatic head cancer with possible metastatic disease to the liver, biliary obstruction with metal biliary stenting in October. He is currently receiving chemotherapy. PAST SURGICAL HISTORY: ERCP with biliary stent placement in October. He has also had a back surgery. CURRENT MEDICATIONS: Include Tylenol, Lovenox, lactulose, Ativan, milk of magnesia. He has been sta rted on meropenem, oxycodone for pain, MiraLAX, and simethicone. ALLERGIES: Sulfa. SOCIAL HISTORY: No tobacco, no alcohol. FAMILY HISTORY: Negative for pancreatic cancer. REVIEW OF SYSTEMS: CONSTITUTIONAL: Some chills and fever. Denies anorexia. HEENT: No headache. No visual disturbances. He denies icterus. No difficulty swallowing. PULMONARY: No cough or short ness of breath. CARDIOVASCULAR: No chest pain or palpitations. GASTROINTESTINAL: Diffuse abdomina l pain, chronic constipation. Denies nausea, vomiting, heartburn, dysphagia, melena, hematochezia or diarrhea. RHEUMATOLOGIC: Chronic back pain. DERMATOLOGIC: No pruritus or jaundice. NEURO: Jean Carlos es seizures, focal motor weakness, paresthesias. PHYSICAL EXAM: VITAL SIGNS: Blood pressure 125/83, pulse is 94, temperature is 37.0, respirations a re 18, oxygenation is 95% on room air. GENERAL: Comfortable male in no acute distress. HEENT: Nor mocephalic, atraumatic. NECK: Supple. Sclerae anicteric. No adenopathy. PULMONARY: Clear to aus cultation bilaterally. CARDIOVASCULAR: Regular rate and rhythm without murmur, rub, or gallop. GI: Abdomen is soft, nondistended. No tenderness, rebound, or guarding. No organomegaly. No ascites. No abdominal bruit. MUSCULOSKELETAL: Normal gait and station without joint deformity, swelling, o r warmth. No palmar erythema. SKIN: Warm and dry without jaundice. NEURO: Alert and oriented to person, place, and time. Cranial nerves normal. Motor nonfocal. LABORATORY DATA: Database includes a white blood count of 16.7, hematocrit 31.4, platelets are 110. Sodium 138, potassium 3.4, chloride 104, bicarbonate 26, BUN 13, creatinine 0.5, glucose 109, AST is 66, ALT is 88, alkaline phosphatase 216, total protein 5.6, albumin 3.0, total bilirubin 0.4. Amyla se and lipase are drawn and pending. IMAGING: Includes an abdominal ultrasound on 03/20/2018, that shows a pancreatic head mass with bili dayo stent in place. The liver is 16.4 cm. Multiple solid lesions are seen within both lobes of the liver. The appearance is consistent with metastatic disease. There is biliary ductal dilatation wit h pneumobilia. There is gallbladder debris without gallbladder wall thickening or pericholecystic fl uid. CT scan of the abdomen and pelvis on 02/05/2018, showed subsegmental atelectasis in both lobes. There is mild peribronchial thickening. The liver is normal in size with an 8 mm cystic structure in the left hepatic lobe. There is mild periportal edema. There is left-sided pneumobilia. The lesley iary stent extends from the caudal portion of the common bile duct inferiorly into the duodenum. The re is no pancreatic ductal dilatation. The gallbladder is contracted. The pancreas has heterogeneou s enhancement of the head consistent with known neoplasia. There is no adenopathy. The stomach, duo denum, jejunum, and bowel are unremarkable. There is a little nonspecific mucosal enhancement of the distal ileum by the IC valve. The appendix is normal. IMPRESSION: 1. Diffuse abdominal pain. 2. Fever. 3. Leukocytosis. 4. Elevated liver tests. 5. Pancreatic malignancy. RECOMMENDATIONS: 1. N.p.o. 2. Continue antibiotics. 3. Biliary stent exchange today. 4. He has had a CT scan reportedly at [facility] on March 13 that showed some intraductal debris, and as he has no other source of fever and white count and his liver tests are in deed elevated and the CT shows biliary debris, I think stent exchange would be appropriate to help mi tigate any problems with cholangitis, especially in the setting of him receiving ongoing chemotherapy . 5. Hold Lovenox. 6. Further recommendations to follow. We will schedule his case for this afternoon with anesthesia. I spoke with Dr. Quang Hoang, who is in agreement with the plan and will perform his procedure. I andre ve discussed this with the family, and they are aware. /[id number]/[id number]
--- NOTE | 2018-03-21 12:56 | HOSPPROG ---
Hospitalist Progress Note Assessment/Plan: 72 yo M w/ pancreatic CA presents with fever and abnormal LFTs. Was here about 6 weeks ago with similar presentation found to have Serratia bacteremia. #Fever: Afebrile but wbc up a bit and abdominal pain worse. LFTs about the same. Concern for biliary source/cholangitis. Recent CT with debris in bile ducts; abd US here with relatively stable CBD dilation. He is not septic or toxic appearing. -GI consulted, plan for repeat ERCP with plan for stent exchange this PM -ID following, continue meropenem -Follow blood cultures, currently negative #Acute pancreatitis: Lipase almost 20k, related to obstruction/mass -ERCP as above -Supportive care with IVF, pain and nausea control #Abnormal LFTs: Not significantly obstructive. Stable. Related to above. -Trend #Pancreatic cancer: Followed by [facility], last chemo 03/06. -Progression on recent scan despite chemo, not surgical candidate -Consider celiac plexus block for sxs control in near future #Anemia: Stable, no e/o bleeding. Multifactorial from chemo/chronic inflammation. #Thrombocytopenia: Stable. 2/2 chemo. Diet - Regular Code - Full Ppx - stopped LMWH, ambulate TID Dispo - Continue inpatient admission for further management and evaluation of fever with ERCP and IV abx. Subjective: Difficulty getting comfortable last night due to pain. Seems positional. No fevers but temp 99. Pain seems to be a little better after eating. No diarrhea or vomiting. Objective: Vital Signs Temp Pulse Resp BP Pulse Ox 36.4 C 94 18 128/82 H 90 L 03/21/18 12:20 03/21/18 12:20 03/21/18 12:20 03/21/18 12:20 03/21/18 12:20 Laboratory Results 03/21/18 03:35 03/21/18 03:35 03/20/18 03/21/18 03/22/18 05:59 05:59 05:59 Intake Total 1150 1700 Output Total 700 1 Balance 450 1699 - Physical Exam Constitutional: no apparent distress, not in pain, cachectic Eyes: PERRL, anicteric sclera, EOMI Ears, Nose, Mouth, Throat: moist mucous membranes, hearing normal, ears appear normal, no oral mucosal ulcers Cardiovascular: regular rate and rhythym, no murmur, rub, or gallop Respiratory: no respiratory distress, no rales or rhonchi, clear to auscultation Gastrointestinal: normoactive bowel sounds, soft, non-tender abdomen, no palpable masses Genitourinary: no bladder fullness, no bladder tenderness, no renal bruits Skin: no rashes or abrasions, no fluctuance, no induration Musculoskeletal: full muscle strength, no muscle tenderness, normal joint ROM Neurologic: AAOx3, sensation intact bilaterally Psychiatric: interacting appropriately, not anxious, not encephalopathic, thought process linear ICD10 Worksheet Patient Problems: Problems Problem Status Onset Fever and chills Acute Pancreatic cancer Acute Dehydration Acute Nausea and vomiting Acute Neutropenic fever Acute
--- NOTE | 2018-03-21 15:45 | GCON ---
MEDICAL ONCOLOGY CONSULTATION The patient is a 72-year-old gentleman who was diagnosed with locally advanced pancreatic carcinoma i n October of 2017. He presented with weight loss and jaundice. There is evidence of lymph node involve ment. He received a biliary stent and then FOLFIRINOX with stable disease and a declining CA-19-9. He then received additional FOLFIRINOX. After cycle 6, he was admitted for serratia bacteremia. His most recent CT scans unfortunately show evidence of metastatic disease with obvious liver lesions an d increase in the size of the primary tumor, and he is also having rising tumor marker. He has been considering other options including second-line chemotherapy versus experimental trial. However, he was admitted on 03/19 complaining of fever and abdominal discomfort. He was admitted. Cultures were obtained, and he was placed on meropenem. His fever has decreased. He has not been neutropenic. Santi patel still has a leukocytosis and complains of some mid epigastric discomfort with occasional radiation to the back. PAST MEDICAL HISTORY: He has otherwise been quite healthy. MEDICATIONS ON ADMISSION: Include lorazepam, ondansetron. REVIEW OF SYSTEMS: Negative except as discussed above. PHYSICAL EXAMINATION: GENERAL: He is a very pleasant, alert male. VITAL SIGNS: Blood pressure 116 /80, temp is 98.2. HEENT: He is not icteric. I detect no adenopathy. LUNGS: Clear. CARDIAC: Un remarkable. ABDOMEN: Normal bowel sounds. Slight tenderness in the mid epigastrium without periton eal signs. EXTREMITIES: No edema. NEUROLOGIC: Nonfocal. White count 16,000 with a bit of a leftward shift, hemoglobin 10.2, hematocrit 31.4, platelets are 11 0,000. Chemistry panel shows elevated liver function tests with an AST of 66, ALT of 88, and an alk phos of 216. An abdominal ultrasound performed yesterday shows a pancreatic head mass with biliary s tent in place and multiple solid lesions in the liver. IMPRESSION: Patient with advancing pancreatic cancer admitted with fever, most likely source would b e cholangitis. Fever has diminished. He is having some epigastric pain. This could be related to t he cholangitis. It also could be related to progressive disease from his pancreatic cancer. There i s the outside possibility this could be related to pancreatitis, and I am going to check an amylase a nd a lipase. I should note his bilirubin is normal, and there is no evidence that his stent is obstr ucted. Our service will follow with you. /[id number]/MODL
[2018-03-21] MEDS ORDERED: LR 1,000 ML IV ONE (16:26)
[2018-03-21] MEDS ORDERED: IOTHALAMATE MEG (CONRAY) 50 ML VIAL IV ONE (16:41)
[2018-03-21] MEDS ORDERED: GLUCAGON HCL 1 MG VIAL ONE (16:41)
--- NOTE | 2018-03-21 17:12 | PDANEPAE ---
ANE History of Present Illness Debre in bile duct ANE Past Medical History - Cardiovascular History Hx Hypertension: No Hx Arrhythmias: No Hx Chest Pain: No Hx Palpitations: No - Pulmonary History Hx COPD: No Hx Asthma/Reactive Airway Disease: No Hx Oxygen in Use at Home: No Hx Sleep Apnea: No Sleep Apnea Screening Result - Last Documented: Positive - Endocrine History Hx Diabetes: No - Chronic Pain History Chronic Pain: No ANE Review of Systems Review of Systems: ANE Patient History - Allergies Allergies/Adverse Reactions: Sulfa (Sulfonamide Antibiotics) Allergy (Verified 03/19/18 20:58) passed out - Home Medications Home medications: home medication list seen and reviewed Home Medications: LORazepam [Ativan (*)] 0.5 mg SL Q4H PRN 01/08/18 [Last Taken 3 Days Ago ~] Ondansetron [Zofran Odt] 8 mg PO Q8 PRN 01/08/18 [Last Taken 03/18/18] Prochlorperazine Maleate [Compazine 10mg (*)] 10 mg PO Q6HRS PRN 01/08/18 [Last Taken 03/18/18] Potassium Chloride 10 meq PO BID 02/05/18 [Last Taken 03/19/18 19:00] - NPO status NPO Status: no food or drink >8 hours NPO Since - Liquids (Date): 03/21/18 NPO Since - Liquids (Time): 08:00 NPO Since - Solids (Date): 03/21/18 NPO Since - Solids (Time): 08:00 - Anes Hx Anes Hx: no prior problems - Smoking Hx Smoking Status: Former smoker ANE Labs/Vital Signs - Labs Result Diagrams: 03/21/18 03:35 03/21/18 03:35 - Vital Signs Blood Pressure: 148/94 Heart Rate: 84 Respiratory Rate: 18 O2 Sat (%): 95 Height: 180.34 cm Weight: 61.8 kg ANE Physical Exam - Airway Neck exam: FROM Mallampati Score: Class 2 - Pulmonary Pulmonary: no respiratory distress - Cardiovascular Cardiovascular: regular rate and rhythym - ASA Status ASA Status: III ANE Anesthesia Plan Anesthesia Plan: general endotracheal anesthesia
[2018-03-21] MEDS ORDERED: ROCURONIUM 50 MG/5 ML VIAL ONE (17:22)
[2018-03-21] MEDS ORDERED: LIDOCAINE 2% 5 ML SDV ONE (17:22)
[2018-03-21] MEDS ORDERED: fentaNYL 100 MCG/2 ML INJ ONE (17:23)
[2018-03-21] MEDS ORDERED: PROPOFOL 200 MG/20 ML VIAL ONE (17:23)
[2018-03-21] MEDS ORDERED: INDOMETHACIN 50 MG SUPP PR ONE ×2 (17:35→18:09)
[2018-03-21] MEDS ORDERED: SUGAMMADEX SODIUM 200 MG/2 ML VIAL IVP ONE (18:31)
[2018-03-21] MEDS ORDERED: NALOXONE HCL 0.4 MG/ML INJ IVP PRN (18:52)
[2018-03-21] MEDS ORDERED: ONDANSETRON 4 MG/2 ML VIAL IVP PRN (18:52)
[2018-03-21] MEDS ORDERED: fentaNYL 100 MCG/2 ML INJ IVP PRN (18:52)
--- NOTE | 2018-03-21 18:52 | POSTANESTH ---
Post Anesthetic Evaluation Cardiovascular Status: Similar to Pre-Op Cond Respiratory Status: Similar to Pre-op Cond. Level of Consciousness/Mental Status: Alert and Oriented, Mildly Sleepy, Arousable Pain Control: Adequate, Prn Tx Ordered Nausea/Vomiting Control: Adequate, Prn Tx Ordered Complications Possibly Related to Anesthesia: None Noted
--- NOTE | 2018-03-21 18:55 | GIREPORT ---
Formerly [facility], [facility] Surgical Services - Endoscopy Department Patient Name: Alex Womack Procedure Date: 03/21/2018 5:18 PM Patient Type: Inpatient Attending MD/ ER Physician: Quang Hoang MD Procedure: ERCP Indications: Increased LFTs, Abnormal imaging. Bile duct stone(s) Patient Profile: 72 year old male presents for biliary decompression. He has increased L FTs, fevers, and debris in his CBD noted on imaging. Providers: Quang Hoang MD Medicines: General Anesthesia, Indomethacin 100 mg ME Complications: No immediate complications. Estimated blood loss: Minimal. Description of Procedure: After obtaining informed consent, the scope was passed under direct vis ion. Throughout the procedure, the patient's blood pressure, pulse, and oxyg en saturations were monitored continuously. The Duodenalscope was introduc ed through the mouth, and advanced to the duodenum and used to inject cont rast into the bile duct. The ERCP was accomplished without difficulty. The patient tolerated the procedure well. Findings: The mechanical design engineer film was normal. One stent was removed from the biliary tree using a rat-toothed forceps. A wire was passed into the biliary tree. The short-nosed traction sphincterotome was passed over the guidewire and t he bile duct was then deeply cannulated. Contrast was injected. I personal ly interpreted the bile duct images. Ductal flow of contrast was adequate. Image quality was adequate. Contrast extended to the entire biliary ricardo e. A distal 2.5cm distal stricture noted. The biliary tree was swept with a 15 mm balloon starting at the bifurcation. Significant sludge was swept from the duct. One 10 mm by 6 cm covered metal stent was placed into the common bile duct. Bile flowed through the stent. The stent was in good position. Estimated Blood Loss: Estimated blood loss was minimal. Post Op Diagnosis: - One stent was removed from the biliary tree. - The biliary tree was swept and sludge was found. - One covered metal stent was placed into the common bile duct. Recommendation: - Return patient to [facility] for [facility] care. - Clear liquid diet tomorrow. - Continue present medications. - Thank you for allowing me to participate in the care of your patient. Attending Participation: I personally performed the entire procedure. Quang Hoang MD Quang Hoang MD 03/21/2018 6:55:02 PM This report has been signed electronicallyQuang Hoang MD Number of Addenda: 0 Note Initiated On: 03/21/2018 5:18 PM [email or web address]}
[2018-03-22] MEDS: MEROPENEM 1 GM in NS 100 ML IV SCH (06:00)
[2018-03-22 08:26] VITALS: BP 114/80
--- NOTE | 2018-03-22 10:00 | SOAPPROG ---
SOAP Progress Note Assessment/Plan: Assessment: 1. Metastatic pancreatic cancer, progressive after FOLFIRINOX 2. Biliary obstruction due to tumor / stricture / biliary sludge s/p ERCP 3. Fever, likely related to cholangitis Pt feeling well. No e/o ongoing infection. Plan: - pt appears well enough for discharge today - should likely continue on PO abx (eg levofloxacin) for 5-7 days; will defer to GI - f/u with me in clinic on 03/24 as previously scheduled. he is interested in potential clinical trial options vs standard 2nd line chemo (gem/abraxane) - would hold off on celiac plexus block for now as pt is pain free. 30 min spent w/ pt and in coordination of care. 03/22/18 09:58 Subjective: feels much better after ERCP yesterday. Pain has resolved. Objective: exam: thin, NAD Lungs CTAB CV RRR no MGR Abd: +BS NTND Ext: no edema Neuro: a+ox3. Vital Signs Temp Pulse Resp BP Pulse Ox 36.6 C 79 16 114/80 97 03/22/18 08:22 03/22/18 08:22 03/22/18 08:22 03/22/18 08:22 03/22/18 08:22 Laboratory Results 03/22/18 05:30 03/22/18 05:30 03/21/18 03/22/18 03/23/18 05:59 05:59 04:59 Intake Total 1700 1260 Output Total 1 0 Balance 1699 1260 ICD10 Worksheet Patient Problems: Problems Problem Status Onset Fever and chills Acute Pancreatic cancer Acute Dehydration Acute Nausea and vomiting Acute Neutropenic fever Acute
[2018-03-22] MEDS: SENNOSIDES/DOCUSATE SODIUM TAB PO SCH (10:19)
--- NOTE | 2018-03-22 11:10 | PCMIDPN ---
Assessment/Plan: # Febrile illness associated w elevated LFTs and leukocytosis. Likely mild cholangitis related to obstruction from pancreatic cancer, now s/p stent exchange. No associated bacteremia identified. LFTs normalized and WBC much improved. AF --dc okay w ID --dc meropenem at discharge --Levoflox 750mg PO daily x 5 days start tomorrow 03/23/18. Instructions given to patient and family about risk/benefits FQ and when to start abx --no ID f/u needed Medications Meropenem 1 g IV Q 8h, #3 Micro 03/19 respiratory PCR: negative 03/19 blood cultures (2)NGTD Care coordinated w/ Dr. Garcia Subjective: feeling lots better! Ate full diet this AM wants to go home today Objective: Vital Signs Temp Pulse Resp BP Pulse Ox 36.6 C 79 16 114/80 97 03/22/18 08:22 03/22/18 08:22 03/22/18 08:22 03/22/18 08:22 03/22/18 08:22 Laboratory Results 03/22/18 05:30 03/22/18 05:30 03/21/18 03/22/18 03/23/18 05:59 05:59 04:59 Intake Total 1700 1260 Output Total 1 0 Balance 1699 1260 - Physical Exam General Appearance: alert, no apparent distress EENT: scleral icterus, poor dentition, No thrush Respiratory: No accessory muscle use Cardiac/Chest: regular rate, rhythm Extremities: No pedal edema Abdomen: normal bowel sounds, non-tender, soft Skin: No rash Neuro/Psych: alert, normal mood/affect, oriented x 3 - Line/s Mediport Lines: No drainage, No erythema - Time Spent With Patient Time Spent with Patient: greater than 25 minutes Time Spent with Patient: Greater than 25 minutes spent on this patients care, greater than 50% of time spent counseling, educating, and coordinating care regarding the above mentioned plan. ICD10 Worksheet Patient Problems: Problems Problem Status Onset Fever and chills Acute Pancreatic cancer Acute Dehydration Acute Nausea and vomiting Acute Neutropenic fever Acute
--- NOTE | 2018-03-22 11:49 | PDDCSUM ---
Discharge Summary Discharge Summary: Date of Admission: 03/19/2018 Date of Discharge: 03/22/2018 Consultants: GI (Dr Haong, Dr Madera), infectious disease (Dr Barba), oncology ( Dr Gonzales, Dr Chung) Procedures/Studies: 1. ERCP 2. Abdominal US Discharge Diagnoses: 1. Fever, associated with 2. LFT abnormalities and leukocytosis, likely related to 3. Mild cholangitis 4. Metastatic pancreatic cancer Brief Hospital Course: 72yo M with metastatic pancreatic cancer presented with fever found to have mild LFT abnormalities and leukocytosis. Started on meropenem given his h/o Serratia bacteremia about 6 weeks ago. His LFTs didn't improve much so underwent ERCP with Dr Hoang: significant sludge was swept from biliary tree, prior stent removed and new CBD stent was placed. His symptoms and LFTs improved and he was discharged with 5 more days of antibiotics. He is pain free and tolerating PO. Of note, his pancreatic cancer has progressed on FOLFIRINOX and he is pursuing additional options with his oncologist. Medications: Please refer to EMR for complete list. Changes this admission include addition of levofloxacin 750mg daily x5 days. Follow Up Plan: 1. Clinic visit with Dr Chung early next week to discuss next options for pancreatic cancer Physical Exam: Vitals reviewed, afebrile and stable. No distress, thin appearing. Alert and oriented, rrr without m/r/g, lungs clear, abdomen soft and nontender, no rashes or jaundice, anicteric sclera.
== END 2018-03-22 13:49 | disposition home or self-care (01) | DRG 445 ==
LOC: F1N 23:13
PROVIDERS: ADMIT Student in an Organized Health Care Education/Training Program; ATTEND Student in an Organized Health Care Education/Training Program
DX: K83.09 Other cholangitis (principal); C25.0 Malignant neoplasm of head of pancreas; D64.81 Anemia due to antineoplastic chemotherapy; C78.7 Secondary malignant neoplasm of liver and intrahepatic bile duct; C77.9 Secondary and unspecified malignant neoplasm of lymph node, unspecified; D69.6 Thrombocytopenia, unspecified; R74.0 Nonspecific elevation of levels of transaminase and lactic acid dehydrogenase [LDH]
CPT/HCPCS: C1874; J1610; J1642; J1650; J2185; J2704; J3010; Q9961

== ENCOUNTER → 2018-05-21 | Outpatient (CLI) | payer OTHER ==
[~2018-05-21] MED LIST changes: +IOPAMIDOL (ISOVUE 370) 100 ML BTL IV ONE; -IOPAMIDOL (ISOVUE-300) 100 ML BTL ONE
== END | disposition home or self-care (01) ==
LOC: FIMAGING 12:48
PROVIDERS: ATTEND Physician Assistant
DX: R07.1 Chest pain on breathing (principal); C25.0 Malignant neoplasm of head of pancreas; C78.7 Secondary malignant neoplasm of liver and intrahepatic bile duct; C78.6 Secondary malignant neoplasm of retroperitoneum and peritoneum
CPT/HCPCS: 71275; Q9967

== ENCOUNTER → 2018-06-19 | Day surgery (SDC) | payer OTHER ==
[~2018-06-19] MED LIST changes: +FLUMAZENIL 0.5 MG/5 ML MDV IVP PRN; -IOPAMIDOL (ISOVUE 370) 100 ML BTL IV ONE; +LIDOCAINE 1% 300 MG/30 ML SDV ONE; +MIDAZOLAM 2 MG/2 ML VIAL IVP PRN; +NALOXONE HCL 0.4 MG/ML INJ IVP PRN; +NS 1,000 ML IV SCH; +fentaNYL 100 MCG/2 ML INJ IVP PRN
[2018-06-19 11:02] VITALS: BP 105/64
== END | disposition home or self-care (01) ==
LOC: FIMAGING 08:51
PROVIDERS: ATTEND Internal Medicine Hematology & Oncology
PROC: 0FB23ZX Excision of Left Lobe Liver, Percutaneous Approach, Diagnostic (ICD-10-PCS; principal; 2018-06-19)
DX: C25.9 Malignant neoplasm of pancreas, unspecified (principal); C78.7 Secondary malignant neoplasm of liver and intrahepatic bile duct
CPT/HCPCS: J2250; J2310; J3010

== ENCOUNTER 2018-06-20 02:56 | Observation (INO) | payer OTHER ==
--- NOTE | 2018-06-20 03:01 | EDPHY ---
H & P Time Seen by Provider: 06/20/18 03:00 HPI/ROS: HPI CHIEF COMPLAINT: Right-sided abdominal pain HISTORY OF PRESENT ILLNESS: 72-year-old male, history of metastatic pancreatic cancer, and bacteremia presents to the emergency room with right-sided abdominal pain. Patient had a liver biopsy done yesterday and then went home. Around 9:00 p.m. At night he developed some right-sided right upper quadrant abdominal pain rather sharp stabbing worse when he takes a deep breath in. Denies any chest pain or shortness of breath. His main complaint is right- sided abdominal pain. Predominately located right upper quadrant and right mid abdomen. Also tender when you palpate. Past Medical History: Metastatic pancreatic cancer, bacteremia, liver Mets Past Surgical History: Recent right liver biopsy. Social History: Denies drugs alcohol tobacco. Family History: Noncontributory ROS REVIEW OF SYSTEMS: 10 Systems were reviewed and negative with the exception of the elements mentioned in the history of present illness. Exam Constitutional triage nursing summary reviewed, vital signs reviewed, awake/ alert. Tachycardic 118. Eyes normal conjunctivae and sclera, EOMI, PERRLA. HENT normal inspection, atraumatic, moist mucus membranes, no epistaxis, neck supple/ no meningismus, no raccoon eyes. Respiratory clear to auscultation bilaterally, normal breath sounds, no respiratory distress, no wheezing. Cardiovascular tachycardia, regular rhythm, no murmur, no edema, distal pulses normal. Gastrointestinal tender palpation right upper quadrant and mid abdomen,, no rebound, no guarding, normal bowel sounds, no distension, no pulsatile mass. Genitourinary no CVA tenderness. Musculoskeletal no midline vertebral tenderness, full range of motion, no calf swelling, no tenderness of extremities, no meningismus, good pulses, neurovascularly intact. Skin slight jaundice, right liver biopsy site puncture site is clean, dry and intact. Neurologic awake, alert and oriented x 3, AAOx3, moves all 4 extremities equally, motor intact, sensory intact, CN II-XII intact, normal cerebellar, normal vision, normal speech. Psychiatric normal mood/affect. Heme/Lymph/Immune no lymphadenopathy. Differential Diagnosis: Differential diagnosis includes but is not limited to and in no particular order: Bleeding from liver biopsy site, Bowel obstruction , appendicitis, gallbladder disease, diverticulitis, colitis, enteritis, perforated viscus, gastritis, GERD, esophagitis, urinary tract infection, pyelonephritis, kidney stones Medical Decision Making: Plan for this patient IV establishment with IV Dilaudid for pain control 1 mg, IV fluids, type and screen, basic blood work, low threshold for CT scan abdomen pelvis with IV contrast rule out bleeding. Re-evaluation: 0359: No she staff having hard time get blood work and IV. IV was finally established. Patient getting IV fluids at this time and will obtain blood work. Meanwhile while waiting I did do a bedside ultrasound to make sure he does not have large volume of fluid in his abdomen which I do not see on his ultrasound. Blood work pending at this time Patient received 1 mg IV Dilaudid for pain control. Will obtain blood work and proceed with CT scan abdomen pelvis. CT scan chest abdomen pelvis with IV contrast including angiogram of the chest this report was faxed to me at 5:41 a.m.. Results of the scan showed no pulmonary embolism. There is a large pancreatic mass measuring 7 cm a CBD stent in place. Innumerable metastatic lesions of the liver Moderate ascites Streaking opacification lower lobes bilaterally which may represent atelectasis or possible early infiltrate. Given the patient's abdominal pain patient will be admitted to the hospitalist service for observation and pain control. No evidence of intra-abdominal bleeding or pulmonary embolism on CT. Source: Patient - Medical/Surgical History Hx Asthma: No Hx Chronic Respiratory Disease: No Hx Diabetes: No Hx Cardiac Disease: No Hx Renal Disease: No Hx Cirrhosis: No Hx Alcoholism: No Hx HIV/AIDS: No Hx Splenectomy or Spleen Trauma: No Other PMH: hernia/back surg, pancreatic CA, fissure rectum - Social History Smoking Status: Former smoker Constitutional: Initial Vital Signs Temperature (C) 36.8 C 06/20/18 03:01 Heart Rate 118 H 06/20/18 03:01 Respiratory Rate 16 06/20/18 03:01 Blood Pressure 142/104 H 06/20/18 03:01 O2 Sat (%) 92 06/20/18 03:01 O2 Delivery Mode Nasal Cannula O2 (L/minute) 2 Allergies/Adverse Reactions: Sulfa (Sulfonamide Antibiotics) Allergy (Verified 06/10/18 17:41) passed out Home Medications: Medication Instructions Recorded LORazepam [Ativan (*)] 0.5 mg PO DAILY PRN 01/08/18 Herbals/Supplements -Info Only 1 ea PO DAILY 04/10/18 Gabapentin [Neurontin 100 MG (*)] 200 mg PO HS 06/10/18 Niacin [Niacin 500 mg (*)] 500 mg PO DAILY 06/10/18 Omeprazole 20 mg PO DAILY 06/10/18 Ondansetron Odt [Zofran Odt 4 mg 8 mg PO DAILY PRN 06/10/18 (*)] fentaNYL [Duragesic 12 MCG Patch 12 mcg TD Q72H MDD 288 mcg 06/10/18 (*)] Diphenoxylate HCl/Atrop Sulf 1 tab PO DAILY PRN 06/20/18 [Lomotil Tab (*)] Potassium Cl [Klor-Con] 10 meq PO DAILY 06/20/18 Prochlorperazine Maleate 10 mg PO DAILY PRN 06/20/18 [Compazine 10mg (*)] levOFLOXACIN [levAQUIN (*)] 500 mg PO DAILY14 06/20/18 Medical Decision Making - Diagnostics Imaging Results: Imaging Impressions Abdomen CT 06/20/18 04:33 Impression: 1. Large pancreatic mass, which has increased in size. Stent in the common bile duct and pancreatic head. 2. Numerous hepatic metastases, which have increased in size. 3. Moderate ascites. 4. Nonobstructive nephrolithiasis bilaterally. A preliminary report was provided by [facility] to Dr. Domingo Pulido on June 20, 2018 at 0541 hours. The final interpretation is concordant. Chest/Thorax CTA 06/20/18 04:33 Impression: 1. No evidence of thrombopulmonary embolic disease. 2. Mild atelectasis at both lung bases, left greater than right. 3. Stable small pulmonary nodules. No new pulmonary nodule. A preliminary report was provided by [facility] to Dr. Domingo Pulido on June 20, 2018 at 0541 hours. The final interpretation is concordant. - Data Points Laboratory Results: Laboratory Results 06/20/18 03:55 06/20/18 03:55 Medications Given: Fentanyl (Duragesic) 25 mcg TD Q72H MIRANDA Stop: 06/30/18 16:29 Last Admin: 06/20/18 17:09 Dose: 25 mcg Gabapentin (Neurontin) 200 mg PO HS MIRANDA Stop: 12/17/18 20:59 Last Admin: 06/20/18 20:05 Dose: 200 mg Hydromorphone HCl (Dilaudid [employer]) 0 mg IV PRN PRN; Protocol PRN Reason: Pain, Severe Unable to Take PO Stop: 06/30/18 12:43 Last Admin: 06/20/18 13:35 Dose: 6 mg Sodium Chloride (Ns) 1,000 mls @ 50 mls/hr IV [facility] Stop: 12/17/18 06:29 Last Admin: 06/20/18 20:18 Dose: 1,000 mls Levofloxacin (Levaquin) 500 mg PO DAILY14 MIRANDA PRN Reason: Protocol Stop: 07/20/18 13:59 Last Admin: 06/20/18 15:05 Dose: 500 mg Niacin (Niacin) 500 mg PO DAILY [facility] Stop: 12/17/18 08:59 Last Admin: 06/20/18 13:13 Dose: Not Given Ondansetron HCl (Zofran) 4 mg IVP Q4HRS PRN PRN Reason: Nausea/Vomiting, Can't Take PO Stop: 12/17/18 06:22 Last Admin: 06/20/18 12:14 Dose: 4 mg Oxycodone HCl (Oxycodone Ir) 5 - 10 mg PO Q3HRS PRN PRN Reason: Pain, Severe Able to Take PO Stop: 06/30/18 06:22 Last Admin: 06/20/18 15:11 Dose: 5 mg Potassium Chloride (Klor-Con) 10 meq PO DAILY [facility] Stop: 12/17/18 08:59 Last Admin: 06/20/18 12:14 Dose: 10 meq Discontinued Medications Dexamethasone (Decadron 0.2mg/Ml Iv Ped/ Syr) 4 mg IV ONCE ONE Stop: 06/20/18 16:22 Last Admin: 06/20/18 17:10 Dose: Not Given Dexamethasone (Decadron Injection) 4 mg IV ONCE ONE Stop: 06/20/18 16:31 Last Admin: 06/20/18 17:09 Dose: 4 mg Fentanyl (Duragesic) 12 mcg TD Q72H [facility] Stop: 06/30/18 08:14 Last Admin: 06/20/18 11:21 Dose: Not Given Hydromorphone HCl (Dilaudid) 1 mg IVP EDNOW ONE Stop: 06/20/18 03:11 Last Admin: 06/20/18 03:38 Dose: 1 mg Hydromorphone HCl (Dilaudid) 1 mg IVP EDNOW ONE Stop: 06/20/18 04:03 Last Admin: 06/20/18 04:04 Dose: 1 mg Hydromorphone HCl (Dilaudid) 0.2 - 0.4 mg IVP Q2HRS PRN PRN Reason: Pain, Severe Unable to Take PO Stop: 06/30/18 06:22 Last Admin: 06/20/18 12:14 Dose: 0.4 mg Sodium Chloride (Ns) 1,000 mls @ 0 mls/hr IV EDNOW ONE; Wide Open PRN Reason: Protocol Stop: 06/20/18 03:11 Last Admin: 06/20/18 03:35 Dose: 1,000 mls Departure - Departure Disposition: [facility] Acute Clinical Impression: Abdominal pain Condition: Fair
[2018-06-20] MEDS ORDERED: HYDROmorphONE/DILAUDID 2 MG/ML INJ IVP ONE (03:10)
[2018-06-20] MEDS ORDERED: NS 1,000 ML IV ONE (03:10)
[2018-06-20] MEDS ORDERED: HYDROmorphONE/DILAUDID 1 MG/ML INJ IVP ONE (04:02)
[2018-06-20 04:11] LABS: PLATELET COUNT 249 10^3/uL (150-400)
[2018-06-20 04:20] LABS: INR 1.05 (0.83-1.16); PROTIME(PATIENT) 13.9 SEC (12.0-15.0)
[2018-06-20] MEDS ORDERED: IOHEXOL 350mgI/ML (OMNIPAQUE) 150 ML BTL IV ONE (04:44)
[2018-06-20] MEDS ORDERED: ONDANSETRON DISINTEGRATING 4 MG TAB PO PRN ×2 (06:23→08:15)
[2018-06-20] MEDS ORDERED: ACETAMINOPHEN 325 MG TAB PO PRN (06:23)
[2018-06-20] MEDS ORDERED: ONDANSETRON 4 MG/2 ML VIAL IVP PRN (06:23)
--- NOTE | 2018-06-20 06:58 | PDGENHP ---
History and Physical - Chief Complaint Abdominal pain - History of Present Illness 72 yo M w/ hx of metastatic pancreatic CA presents with abdominal pain. The patient had a liver biopsy performed yesterday. Several hours after arriving home he developed severe RUQ pain. He wears a low dose fentanyl patch for pain and usually takes only ibuprofen PRN for additional relief. After the biopsy, however, he was told not to take any ibuprofen. As a result, he was left with only Tylenol for pain relief, which was not effective. CT scan in the ED did not reveal acute complication such as bleed. He is being admitted for pain control. case discussed with ED physician Dr. Anton; records reviewed and summarized above. History Information - Allergies/Home Medication List Allergies/Adverse Reactions: Sulfa (Sulfonamide Antibiotics) Allergy (Verified 06/10/18 17:41) passed out Home Medications: LORazepam [Ativan (*)] 0.5 mg SL Q4H PRN 01/08/18 [Last Taken 04/10/18 1 DOSE] Potassium Chloride 10 meq PO DAILY 02/05/18 [Last Taken 04/10/18 08:00] Herbals/Supplements -Info Only 1 ea PO DAILY 04/10/18 [Last Taken Unknown] Methylcellulose (with Sugar) [Citrucel Powder 19 gm (RX)] 19 gm PO DAILY [Last Taken 04/10/18] ALPHA LIPOIC ACID 300 mg PO DAILY 06/10/18 [Last Taken Unknown] Fentanyl 12 mcg TD Q3D MDD 288 mcg 06/10/18 [Last Taken Unknown] Gabapentin 200 mg PO HS 06/10/18 [Last Taken Unknown] Niacin 100 mg PO DAILY 06/10/18 [Last Taken Unknown] Omeprazole 20 mg PO DAILY 06/10/18 [Last Taken Unknown] Zofran 8 mg PO QID PRN 06/10/18 [Last Taken Unknown] levOFLOXACIN [levAQUIN (*)] 500 mg PO DAILY 06/10/18 [Last Taken Unknown] I have personally reviewed and updated: family history, medical history - Past Medical History cancer (Pancreatic) - Surgical History Reports: hernia repair - Family History Additional family history: Asked, denies - Social History Smoking Status: Former smoker Review of Systems Review of Systems: ROS: 10pt was reviewed & negative except for what was stated in HPI & below Physical Exam Physical Exam: Temp Pulse Resp BP Pulse Ox 36.8 C 99 20 118/80 100 06/20/18 03:01 06/20/18 04:47 06/20/18 04:47 06/20/18 04:47 06/20/18 04:47 Constitutional: chronically ill appearing, uncomfortable Eyes: PERRL, EOMI Ears, Nose, Mouth, Throat: no oral mucosal ulcers Cardiovascular: regular rate and rhythym, no murmur, rub, or gallop Gastrointestinal: normoactive bowel sounds, tenderness (RUQ), No guarding, No rebound, No distension Skin: warm, normal color Musculoskeletal: full muscle strength, no muscle tenderness Neurologic: AAOx3, CN II-XII Intact Psychiatric: interacting appropriately, not anxious Lab Data & Imaging Review 06/20/18 03:55 06/20/18 03:55 WBC 13.06 10^3/uL (3.80-9.50) H 06/20/18 03:55 RBC 3.65 10^6/uL (4.40-6.38) L 06/20/18 03:55 Hgb 9.9 g/dL (13.7-17.5) L 06/20/18 03:55 Hct 32.3 % (40.0-51.0) L 06/20/18 03:55 MCV 88.5 fL (81.5-99.8) 06/20/18 03:55 MCH 27.1 pg (27.9-34.1) L 06/20/18 03:55 MCHC 30.7 g/dL (32.4-36.7) L 06/20/18 03:55 RDW 19.3 % (11.5-15.2) H 06/20/18 03:55 Plt Count 249 10^3/uL (150-400) 06/20/18 03:55 MPV 9.6 fL (8.7-11.7) 06/20/18 03:55 Neut % (Auto) 79.2 % (39.3-74.2) H 06/20/18 03:55 Lymph % (Auto) 5.0 % (15.0-45.0) L 06/20/18 03:55 Grady % (Auto) 13.0 % (4.5-13.0) 06/20/18 03:55 Eos % (Auto) 2.1 % (0.6-7.6) 06/20/18 03:55 Baso % (Auto) 0.4 % (0.3-1.7) 06/20/18 03:55 Nucleat RBC Rel Count 0.0 % (0.0-0.2) 06/20/18 03:55 Absolute Neuts (auto) 10.34 10^3/uL (1.70-6.50) H 06/20/18 03:55 Absolute Lymphs (auto) 0.65 10^3/uL (1.00-3.00) L 06/20/18 03:55 Absolute Monos (auto) 1.70 10^3/uL (0.30-0.80) H 06/20/18 03:55 Absolute Eos (auto) 0.27 10^3/uL (0.03-0.40) 06/20/18 03:55 Absolute Basos (auto) 0.05 10^3/uL (0.02-0.10) 06/20/18 03:55 Absolute Nucleated RBC 0.00 10^3/uL (0-0.01) 06/20/18 03:55 Immature Gran % 0.3 % (0.0-1.1) 06/20/18 03:55 Immature Gran # 0.04 10^3/uL (0.00-0.10) 06/20/18 03:55 RBC/WBC/PLT Morphology TNP 06/20/18 03:55 Platelet Estimate TNP 06/20/18 03:55 PT 13.9 SEC (12.0-15.0) 06/20/18 03:55 INR 1.05 (0.83-1.16) 06/20/18 03:55 APTT 25.9 SEC (23.0-38.0) 06/20/18 03:55 D-Dimer 3.42 ug/mLFEU (0.00-0.50) H 06/20/18 03:55 Sodium 134 mEq/L (135-145) L 06/20/18 03:55 Potassium 4.3 mEq/L (3.5-5.2) 06/20/18 03:55 Chloride 100 mEq/L (97-110) 06/20/18 03:55 Carbon Dioxide 27 mEq/l (22-31) 06/20/18 03:55 Anion Gap 7 mEq/L (6-14) 06/20/18 03:55 BUN 24 mg/dL (7-23) H 06/20/18 03:55 Creatinine 0.6 mg/dL (0.7-1.3) L 06/20/18 03:55 Estimated GFR > 60 06/20/18 03:55 Glucose 108 mg/dL (70-100) H 06/20/18 03:55 Calcium 9.2 mg/dL (8.5-10.4) 06/20/18 03:55 Total Bilirubin 1.0 mg/dL (0.1-1.4) 06/20/18 03:55 Conjugated Bilirubin 0.3 mg/dL (0.0-0.5) 06/20/18 03:55 Unconjugated Bilirubin 0.7 mg/dL (0.0-1.1) 06/20/18 03:55 AST 47 IU/L (17-59) 06/20/18 03:55 ALT 54 IU/L (21-72) 06/20/18 03:55 Alkaline Phosphatase 320 IU/L (38-126) H 06/20/18 03:55 Total Protein 6.1 g/dL (6.3-8.2) L 06/20/18 03:55 Albumin 3.1 g/dL (3.5-5.0) L 06/20/18 03:55 Lipase 28 IU/L (23-300) 06/20/18 03:55 Urine Color YELLOW 06/20/18 06:28 Urine Appearance CLEAR 06/20/18 06:28 Urine pH 5.0 (5.0-7.5) 06/20/18 06:28 Ur Specific [place] > 1.060 (1.002-1.030) H 06/20/18 06:28 Urine Protein NEGATIVE (NEGATIVE) 06/20/18 06:28 Urine Ketones TRACE (NEGATIVE) H 06/20/18 06:28 Urine Blood NEGATIVE (NEGATIVE) 06/20/18 06:28 Urine Nitrate NEGATIVE (NEGATIVE) 06/20/18 06:28 Urine Bilirubin NEGATIVE (NEGATIVE) 06/20/18 06:28 Urine Urobilinogen NEGATIVE EU (0.2-1.0) 06/20/18 06:28 Ur Leukocyte Esterase NEGATIVE (NEGATIVE) 06/20/18 06:28 Urine Glucose NEGATIVE (NEGATIVE) 06/20/18 06:28 Patient ABO/Rh A POSITIVE 06/20/18 03:55 Antibody Screen NEGATIVE 06/20/18 03:55 Assessment & Plan Assessment: 72 yo M w/ metastatic pancreatic CA presents with abdominal pain. Plan: 1. Abdominal pain - RUQ pain with onset a few hours after liver biopsy. CT scan (personally reviewed/interpreted) does not reveal acute complication such as bleeding. The patient usually has minimal pain and does not have a good strategy for managing acute pain, especially as he was told not to use ibuprofen , which is his usual drug of choice. - Admit for pain control - Oxycodone and Dilaudid IV PRN 2. Metastatic pancreatic CA - He has a meeting with outpatient palliative and hospice services today. Per his , she will attend this on his behalf. 3. Normocytic anemia - H/H stable from prior values 4. Elevated Alk Phos - 2/2 numerous liver mets Diet - Clears, ADAT Code - Full Ppx - SCDs Dispo - Admit under observation status
[2018-06-20] MEDS: HYDROmorphONE/DILAUDID 1 MG/ML INJ IVP PRN ×3 (07:25→12:14)
[2018-06-20] MEDS ORDERED: LORazepam 0.5 MG TAB PO PRN (08:15)
[2018-06-20] MEDS ORDERED: fentaNYL 12 MCG PATCH TD SCH (08:15)
[2018-06-20] MEDS ORDERED: PROCHLORPERAZINE MALEATE 10 MG TAB PO PRN (08:15)
[2018-06-20] MEDS: NS 1,000 ML IV SCH ×2 (08:36→20:18)
[2018-06-20] MEDS ORDERED: Herbals/Supplements -Info Only PO SCH (09:00)
[2018-06-20] MEDS ORDERED: HYDROmorphONE/DILAUDID 2 MG/ML INJ ONE (09:49)
--- NOTE | 2018-06-20 10:57 | ASMTCMCOM ---
CM Note CM Note Notes: Pt's chart reviewed for d/c planning. Pt is a 72y/o man w//hx of metastatic pancreatic cancer who came to the ED due to abdominal pain, following a liver biopsy performed yesterday. He has been admitted for pain control. He has a mtg with outpatient palliative and hospice services today; his will attend on his behalf. CM will follow for needs. D/C Plan: TBD Date Signed: 06/20/2018 10:56 AM Electronically Signed By:Devi Rousseau
[2018-06-20] MEDS: POTASSIUM CL 10 MEQ TAB PO SCH (12:14)
[2018-06-20] MEDS ORDERED: HYDROmorphONE/DILAUDID 6 MG/30 ML PCA IV PRN (12:44)
[2018-06-20] MEDS ORDERED: NALOXONE HCL 0.4 MG/ML INJ IVP PRN (12:44)
--- NOTE | 2018-06-20 12:52 | HOSPPROG ---
Hospitalist Progress Note Assessment/Plan: 72 yo M w/ metastatic pancreatic CA presents with abdominal pain. Occurred after liver biopsy, he is use to taking ibuprofen which manages his pain from his cancer. *ruq abd pain -after biopsy -reviewed CT scan which doesn't show any complications -minimal relief w ivp Dilaudid and oxy -will do a SHEET MANAGER overnight -suspect his pain will improve with this *metastatic pancreatic ca w met to the liver - is meeting w OP palliative and hospice today -reviewed CT scan of abdomen which showed increase size of large pancreatic mass , has numerous hepatic metastasis (also, have increased in size) *normocytic anemia *elevated alk phos -2/2 liver mets *plan: Amrik is having ongoing pain in his ruq with deep breathing, says it can go to a 7-8 without pain meds; will order a SHEET MANAGER tonight, evaluate in the morning and see how he is doing. Change his diet to regular diet, dc fluids since he is eating and drinking well. >30 minutes in f/u care and seeing him. Subjective: Amrik is having pain in his ruq w deep breathing. Objective: Vital Signs Temp Pulse Resp BP Pulse Ox 36.6 C 92 18 103/66 97 06/20/18 09:54 06/20/18 11:11 06/20/18 11:11 06/20/18 11:11 06/20/18 11:11 06/19/18 06/20/18 06/21/18 05:59 05:59 05:59 Intake Total 1200 Balance 1200 PT 13.9 SEC (12.0-15.0) 06/20/18 03:55 INR 1.05 (0.83-1.16) 06/20/18 03:55 - Physical Exam Constitutional: other (thin) Eyes: PERRL Ears, Nose, Mouth, Throat: hearing normal Cardiovascular: regular rate and rhythym Respiratory: no respiratory distress Gastrointestinal: other (not significantly tender w palp, but also had recieved pain medicatioons) Skin: warm Neurologic: AAOx3 Psychiatric: interacting appropriately ICD10 Worksheet Patient Problems: Problems Problem Status Onset Abdominal pain Acute Dehydration Acute Fever and chills Acute Nausea and vomiting Acute Neutropenic fever Acute Pancreatic cancer Acute
[2018-06-20] MEDS: NIACIN 500 MG TAB PO SCH (13:13)
[2018-06-20] MEDS: oxyCODONE IR 5 MG TAB PO PRN (15:11)
[2018-06-20] MEDS ORDERED: *PHM DO NOT USE-DEXAMETHASONE 0.2 MG/ML IV PED/NEWBORN SYR IV ONE (16:21)
[2018-06-20] MEDS ORDERED: DEXAMETHASONE 4 MG/ML VIAL IV ONE (16:30)
[2018-06-20] MEDS ORDERED: fentaNYL 25 MCG PATCH TD SCH (16:30)
--- NOTE | 2018-06-20 19:52 | GCON ---
[f rep st] CONSULTATION HEMATOLOGY/ONCOLOGY CONSULTATION REFERRING PHYSICIAN: Anjali Claudio NP REASON FOR CONSULTATION: Abdominal pain, pancreatic cancer. HISTORY OF PRESENT ILLNESS: The patient is a 72-year-old man with metastatic pancreatic cancer treated by Dr. Chung. He was originally diagnosed with clinical T2b (T2 N1) adenocarcinoma of the pancreas in 10/2017. He received neoadjuvant chemotherapy with FOLFIRINOX. His disease was essentially stable after 6 cycles, but was found to have progressed after 8 cycles with liver metastases. He then received 2 cycles of gemcitabine/Abraxane. His restaging CT 06/04/2018 demonstrated progressive hepatic disease. He had an ultrasound- guided biopsy yesterday to obtain tissue for Foundation 1 testing. He did well for a few hours after the procedure, but then developed significant right upper quadrant pain, which brought him to the emergency room. CT this morning compared with 06/04/2018 demonstrated an increase in size of the pancreatic mass (4.3 x 6.6 cm) and increase in size of hepatic metastases. Anterior right lobe of the liver mass 3.5 x 3.2 cm (3.0 x 2.6 cm) and right posterior lobe lesion measuring 3.1 x 3.0 cm (2.7 x 3.0 cm). No evidence of bleed. Moderate ascites present, not commented upon on prior scan. He normally uses a fentanyl patch 12 mcg/hour and ibuprofen. He reports similar right upper quadrant pain about 5 weeks ago for which the addition of ibuprofen was very helpful. That pain radiated through the abdomen toward the left lower quadrant. 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 He stopped ibuprofen in anticipation of the liver biopsy. His pain is better than on admission, but remains significant. He has used about 1 mg of Dilaudid in the last hour or so. He notes some intermittent right shoulder pain. PAST MEDICAL HISTORY: 1. Pancreatic cancer, per HPI. 2. History of Serratia bacteremia leading to port removal. 3. Metal biliary stent. PAST SURGICAL HISTORY: Hernia repair. FAMILY HISTORY: No history of malignancy or blood disorders. SOCIAL HISTORY: Former smoker. He lives with his . He has 2 children. 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 REVIEW OF SYSTEMS: CONSTITUTIONAL: No fever or chills. CARDIOVASCULAR: No exertional chest pain, palpitations, PND, or orthopnea. RESPIRATORY: Increased right upper quadrant pain with deep breaths. No cough. GI: Per HPI. No change in bowel habits. HEMATOLOGIC: No bleeding or bruising. NEUROLOGIC: No new neurologic symptoms. PHYSICAL EXAM: VITAL SIGNS: Blood pressure 107/70, pulse 89, respirations 12, 98% on 0.5 L, and afebrile at 37.3. GENERAL: A chronically ill-appearing gentleman, who is most comfortable lying still, but is alert, appropriate, and in no acute distress. CARDIOVASCULAR: Regular rate and rhythm. LUNGS: Clear to auscultation bilaterally. ABDOMEN: He localizes pain to the right upper quadrant. I do not perform significant palpation due to discomfort. NEUROLOGIC : Grossly nonfocal. LABORATORY DATA: WBC 13.0, hemoglobin 9.9, and platelets 249,000. Normal coags. Sodium 134, potassium 4.3, chloride 100, bicarbonate 27, BUN 24, creatinine 0.6, and glucose 108. Alkaline phosphatase 320 (190, 06/10/2018). RADIOLOGIC STUDIES: Abdominal CT per HPI. Chest CT angiogram today demonstrated no evidence of PE. IMPRESSION: 1. Right upper quadrant pain following liver biopsy. 2. Progressive metastatic pancreatic cancer. Imaging demonstrated no evidence of a subcapsular bleed or other complication from the biopsy. There has been some increase in the hepatic metastases, but not to a large degree. He has previously responded well to ibuprofen suggesting a hepatic capsular component to his pain. That cannot be restarted until later tomorrow following his biopsy. In the meantime, we discussed increasing his fentanyl patch, continuing the Dilaudid DIESEL MOTOR MECHANIC, and a trial of a dose of dexamethasone tonight as an antiinflammatory. Biopsy performed for Foundation One testing. He has not previously had BRCA testing, which may offer some options for therapy as well. /[id number]/MODL MTDD
[2018-06-20] MEDS ORDERED: GABAPENTIN 100 MG CAP PO SCH (21:00)
[2018-06-21 05:59] LABS: PLATELET COUNT 238 10^3/uL (150-400)
[2018-06-21] MEDS ORDERED: LACTULOSE 20 GM/30 ML UDCUP PO PRN (08:51)
[2018-06-21] MEDS ORDERED: MAGNESIUM HYDROXIDE 30 ML UDCUP PO PRN (08:51)
[2018-06-21] MEDS ORDERED: POLYETHYLENE GLYCOL 3350 17 GM PKT PO PRN (08:51)
[2018-06-21] MEDS ORDERED: BISACODYL 10 MG SUPP PR PRN (08:51)
[2018-06-21] MEDS ORDERED: HYDROmorphONE/DILAUDID 1 MG/ML INJ IVP PRN (08:52)
[2018-06-21] MEDS: oxyCODONE IR 5 MG TAB PO PRN ×2 (08:52→12:51)
[2018-06-21] MEDS: POTASSIUM CL 10 MEQ TAB PO SCH (08:53)
[2018-06-21] MEDS: NIACIN 500 MG TAB PO SCH (08:53)
--- NOTE | 2018-06-21 08:56 | HOSPPROG ---
Hospitalist Progress Note Assessment/Plan: 72 yo M w/ metastatic pancreatic CA presents with abdominal pain. Occurred after liver biopsy, he is use to taking ibuprofen which manages his pain from his cancer. *ruq abd pain -after biopsy, but after further talking w Amrik - his abdominal pain has been getting worse -good relief w decadron and ocular care aide -will see how he does today on increased dose of fentanyl patch and prn ibuprofen, oxy *metastatic pancreatic ca w met to the liver - is meeting w OP palliative and hospice today -reviewed CT scan of abdomen which showed increase size of large pancreatic mass , has numerous hepatic metastasis (also, have increased in size) *normocytic anemia *elevated alk phos -2/2 liver mets *plan: see how he does w oral pain meds and if he does, dc later today Subjective: Amrik has no pain this morning, eating and drinking well. Objective: Vital Signs Temp Pulse Resp BP Pulse Ox 36.6 C 81 16 105/70 96 06/21/18 07:45 06/21/18 07:45 06/21/18 07:45 06/21/18 07:45 06/21/18 07:45 Laboratory Results 06/21/18 05:38 06/21/18 05:38 06/20/18 06/21/18 06/22/18 05:59 05:59 05:59 Intake Total 2255 Output Total 1300 Balance 955 PT 13.9 SEC (12.0-15.0) 06/20/18 03:55 INR 1.05 (0.83-1.16) 06/20/18 03:55 - Physical Exam Constitutional: appears nourished, not in pain Eyes: PERRL Ears, Nose, Mouth, Throat: hearing normal Cardiovascular: regular rate and rhythym Respiratory: no respiratory distress Skin: warm Musculoskeletal: full muscle strength Neurologic: AAOx3 Psychiatric: interacting appropriately ICD10 Worksheet Patient Problems: Problems Problem Status Onset Abdominal pain Acute Dehydration Acute Fever and chills Acute Nausea and vomiting Acute Neutropenic fever Acute Pancreatic cancer Acute
[2018-06-21] MEDS ORDERED: SENNOSIDES/DOCUSATE SODIUM TAB PO SCH (09:00)
[2018-06-21] MEDS ORDERED: PANTOPRAZOLE SODIUM 40 MG TAB PO SCH (10:15)
[2018-06-21] MEDS ORDERED: IBUPROFEN 200 MG TAB PO PRN (12:00)
[2018-06-21 12:14] VITALS: BP 109/73
--- NOTE | 2018-06-21 12:25 | SOAPPROG ---
SOAP Progress Note Assessment/Plan: Assessment: This is a 72-year-old male with history of metastatic pancreatic cancer who was admitted for pain following a liver biopsy. 1. Metastatic pancreatic cancer: He is followed by Dr. Chung. He did have a biopsy performed to send for next generation sequencing. 2. Right upper quadrant pain: This occurred acutely following a liver biopsy. He is on increased dose of fentanyl patch up to 25 mcg and is taking oxycodone with good analgesic affect. Once his pain is under control I think it is sensible for him to be discharged with follow-up in our clinic already scheduled for later next week. 3. History of cholangitis: He is afebrile and without leukocytosis. He is currently on Levaquin 06/21/18 12:23 Subjective: His pain is under better control today. No nausea or vomiting. He is eating. Objective: Vital Signs Temp Pulse Resp BP Pulse Ox 37.1 C 86 19 109/73 90 L 06/21/18 10:00 06/21/18 12:00 06/21/18 12:00 06/21/18 12:00 06/21/18 12:00 Laboratory Results 06/21/18 05:38 06/21/18 05:38 06/20/18 06/21/18 06/22/18 05:59 05:59 05:59 Intake Total 2255 Output Total 1300 Balance 955 PT 13.9 SEC (12.0-15.0) 06/20/18 03:55 INR 1.05 (0.83-1.16) 06/20/18 03:55 General: Pleasant-appearing male in no acute distress, accompanied by HEENT: Oropharynx is clear extra movements are intact Cardiovascular: Regular rhythm Pulmonary: Clear to auscultation GI: No pain on palpation the right upper quadrant, bowel sounds are present Neuro: Moving all extremities Psych: Appropriate affect ICD10 Worksheet Patient Problems: Problems Problem Status Onset Abdominal pain Acute Dehydration Acute Fever and chills Acute Nausea and vomiting Acute Neutropenic fever Acute Pancreatic cancer Acute
--- NOTE | 2018-06-21 13:03 | ASDISCHSUM ---
Discharge Information Plan Status:Home with No Needs Medically Cleared to Leave: Discharge Date: D/C Disposition:Home, Routine, Self-Care ADT D/C Disposition: Projected Discharge Date: Transportation at D/C:Family Discharge Delay Reason: Follow-Up Date: Discharge Slot: Final Diagnosis: Placement Information Patient Contact Information Contact Name:DONTA Relationship:Daughter Address:[id number] City:[place] Alternate Phone: State/Zip Code:[place] [address] Email: Financial Information Financial Class:Medicare Advantage Plans Primary Plan Desc:[employer] PLANS Primary Plan Number:[id number] Secondary Plan Desc: Secondary Plan Number: Assessment Information LACE LACE Length of stay for Answers: 1 day current admission Acuity / Level of Answers: No Care: Did the patient have an inpatient admission? Comorbidities - select Answers: Any tumor (including all that apply lymphoma or leukemia) # of Emergency department Answers: 1-2 visits in the last 6 months Score: 4 Date Signed: 06/21/2018 01:02 PM Electronically Signed By:Devi Rousseau [facility] CM Progress Note CM Note CM Note Notes: Pt's chart reviewed for d/c planning. Pt is a 72y/o man w//hx of metastatic pancreatic cancer who came to the ED due to abdominal pain, following a liver biopsy performed yesterday. He has been admitted for pain control. He has a mtg with outpatient palliative and hospice services today; his will attend on his behalf. CM will follow for needs. D/C Plan: TBD Date Signed: 06/20/2018 10:56 AM Electronically Signed By:Devi Rousseau Intervention Information
--- NOTE | 2018-06-21 13:21 | GDS ---
[f rep st] DISCHARGE SUMMARY DISCHARGE DIAGNOSES: 1. Right upper quadrant abdominal pain. 2. Metastatic pancreatic cancer with metastasis to the liver. 3. Normocytic anemia. 4. Elevated alkaline phosphorus. CONSULTATION: Dr. Kajal Rosales. HISTORY OF PRESENT ILLNESS: Briefly, the patient is a very nice 72-year-old gentleman with pancreatic cancer with liver metastasis. The day prior to his admission, he had an ultrasound-guided biopsy to obtain tissue for further testing. He did well for a few hours after the procedure, but then developed significant right upper quadrant pain, which brought him to the ER. CT was performed, which demonstrated an increase in the size of the pancreatic mass and increased size of hepatic metastases. He has moderate ascites present. He usually uses a 12 mcg patch of fentanyl and ibuprofen. He was not able to use the ibuprofen due to the recent biopsy. This can be resumed today. He is doing well. Recommendation is for him to be discharged home. Increase his fentanyl patch to 25 mcg. He has many 12 mcg. Told him to use 2 of those until he can get a prescription for the 25 mcg. He is feeling markedly better, eating and drinking well. HOSPITAL COURSE PER PROBLEM: 1. Right upper quadrant abdominal pain. This is after biopsy but also, talking with Amrik, his pain has been increasing over the last week. Told him to increase his fentanyl patch as well as take the Oxy IR, along with ibuprofen. 2. Metastatic pancreatic cancer with metastasis to the liver. Follow up with Dr. Chung. 3. Normocytic anemia, stable. 4. Elevated alk phos. This is secondary to liver metastasis. DISCHARGE CONDITION: Stable. Blood pressure is 109/73, heart rate of 86, respiratory rate of 19, O2 sats on room air 90%. Temperature is 37.1 Celsius. MEDICATIONS AT DISCHARGE: Please see the EMR. DISCHARGE INSTRUCTIONS: 1. To follow up with Dr. Chung. 2. To use ibuprofen as needed. 3. If he develops fever, chills, chest pain, or shortness of breath, return to the ER. /[id number]/MODL MTDD
--- NOTE | 2018-06-21 14:28 | ASMTDCNOTE ---
Case Management Discharge Discharge Order Complete? Answers: Yes Patient to Obtain Answers: via Family Medications Transportation Arranged Answers: Family/Friends Discharge Comments Notes: Pt is discharging home today with no CM needs. Date Signed: 06/21/2018 02:27 PM Electronically Signed By:SOFÍA Ambrose
== END 2018-06-21 14:19 | disposition home or self-care (01) ==
LOC: F1N 10:04
PROVIDERS: ADMIT Student in an Organized Health Care Education/Training Program; ATTEND Family Medicine
DX: G89.3 Neoplasm related pain (acute) (chronic) (principal); C25.9 Malignant neoplasm of pancreas, unspecified; C78.7 Secondary malignant neoplasm of liver and intrahepatic bile duct; R18.0 Malignant ascites; D64.9 Anemia, unspecified; R74.8 Abnormal levels of other serum enzymes; D72.829 Elevated white blood cell count, unspecified; N20.0 Calculus of kidney; R91.1 Solitary pulmonary nodule; Z92.21 Personal history of antineoplastic chemotherapy; Z87.891 Personal history of nicotine dependence; Z96.89 Presence of other specified functional implants; Z98.890 Other specified postprocedural states; Z88.2 Allergy status to sulfonamides
CPT/HCPCS: 71275; 74177; 96361; 96374; 96375; 96376; 99285; G0378; J1170; J2405; Q9967